=== PATIENT | female | born 1960 | race Caucasian/White ===

== ENCOUNTER 2020-10-11 09:22 | Outpatient (REF) | payer BC, SELFPAY ==
[2020-10-11 09:42] LABS: MANUAL DIFF FLAG NO
[2020-10-11 09:43] LABS: Basophils Percent Auto 0.3 % (0-2); Eosinophils Absolute Auto 0.1 X10*3/uL (0.0-0.4); Eosinophils Percent Auto 1.2 % (0-4); Hematocrit 44.7 % (37-47); Imm Gran Abs Auto 0.02 X10*3/uL (0.00-0.03); Imm Gran Pct Auto 0.3 % (0.0-0.4); Lymphocytes Absolute Auto 1.7 X10*3/uL (1.2-4.9); Lymphocytes Percent Auto 25.6 % (20-40); Mean Corpuscular HGB Conc 33.6 g/dl (31.0-35.0); Mean Corpuscular Hemoglobin 32.4 pg (27.0-33.0); Mean Corpuscular Volume 96.5 fL (80-98); Mean Platelet Volume 10.4 fL (9.4-12.3); Monocytes Absolute Auto 0.6 X10*3/uL (0.1-1.2); Monocytes Percent Auto 8.6 % (2-11); Neutrophils Absolute Auto 4.3 X10*3/uL (2.0-8.3); Platelet Count 258 X10*3/uL (160-400); Red Blood Count 4.63 X10*6/uL (4.20-5.50); Red Cell Distribution Width 12.9 % (11.0-16.0); White Blood Count 6.7 X10*3/uL (4.8-10.8)
[2020-10-11 10:16] LABS: Alanine Aminotransferase 46 U/L (0-31); Albumin Level 4.5 g/dL (3.5-5.0); Alkaline Phosphatase 60 U/L (39-117); Anion Gap 11 (12-20); Aspartate Amino Transferase 30 U/L (5-31); Bilirubin Total 0.6 mg/dL (0.0-1.0); Blood Urea Nitrogen 25 mg/dL (9-16); Carbon Dioxide 31 mmol/L (22-29); Chloride 101 mmol/L (96-108); Cholesterol 199 mg/dL; Estimated Glomerular Filt Rate 50; Glucose Fasting 104 mg/dL (60-99); HDL Cholesterol 49 mg/dL; LDL Cholesterol Calculated 111 mg/dl; Potassium 4.4 mmol/l (3.3-5.1); Sodium 139 mmol/L (135-145); Total Protein 7.1 g/dL (6.5-8.0); Triglycerides 195 mg/dL
[2020-10-11 10:38] LABS: T4 Thyroxine 6.3 ug/dL (4.5-12.0); Thyroid Stimulating Hormone 1.61 uIU/mL (0.32-4.0); Vitamin D 25-OH Total 16.6 ng/mL (>30)
[2020-10-13 09:09] LABS: Folate 14.5 ng/mL (> or = 4.0); Vitamin B12 290 pg/mL (200-900)
== END 2020-10-11 09:23 | disposition home or self-care (01) ==
LOC: HO.LAB 09:22
PROVIDERS: Visit Provider Internal Medicine
DX: E78.00 Pure hypercholesterolemia, unspecified (principal); I10 Essential (primary) hypertension
CPT/HCPCS: 36415; 80053; 80061; 82306; 82607; 82746; 84436; 84443; 85025

== ENCOUNTER 2021-11-23 15:09 | Outpatient (REF) | payer BC, SELFPAY ==
--- NOTE | 2021-11-23 16:27 | MHC.AU.ANR ---
Adult Audiological Evaluation Date of Visit: 11/23/21 Reason for Appointment: Audiological evaluation due to concern for decreased hearing. Ms. Grimes notes difficulties hearing and understanding speech. She feels that she often asks for repetition. Ms. Grimes reports that she began experiencing vertigo ~10 years ago, and feels her hearing started to decline around that time as well. She was seen at [facility] and [facility] in [place] ~10 years ago when her vertigo began. She notes that they weren't able to pinpoint the cause of her vertigo, but noted that her tympanic membranes were thin, likely due to ear infections in childhood. She notes that at her last visit with her PCP Dr. Daniel, he noted a perforation in the right TM. Does patient feel they have a hearing loss?: Yes If Yes, Which Ear?: Both Ears When Was Hearing Difficulty First Noticed?: ~10 years ago Has hearing been tested previously?: Yes Previous Hearing Test Results: Tested at [facility] ~10 year ago, results not available for review. Hearing Handicap Inventory: HHIE SCORE: 30 Based on HHIE score, patient has: Severe perceived hearing handicap Ear History: Family History of Hearing Loss?: Yes: Mother Ear Infections in Childhood: Both Ears History of Ear Wax Buildup: Both Ears Bothersome Tinnitus/Ringing/Noises in Ears: Both Ears Blocked/Full Sensation in Ear(s): Both Ears Medical History: Medical History: Dizziness or Unsteadiness Medical History (Other): Right ACL replaced ~2005, Gall bladder removed ~2009, Kidney stones broken up with sound waves Allergies: Wellbutrin (bupropion), naproxen Medication List: Citalopram 40 mg, dicyclomine 20 mg, lorazepam 0.5 mg, rosuvastatin 10 mg, trazodone 100 mg, triamterene 37.5 mg-hydrochlorothiazide 25 mg Otoscopy: Right Ear: Clear canal, TM appears retracted, no sign of perforation Left Ear: Clear canal, TM appears retracted, no sign of perforation Tympanometry: Tympanometry performed due to: To assess integrity of the middle ear system Right Ear: Hypercompliant Middle Ear System (Type Ad), Double-Peaked Tympanogram Left Ear: Hypercompliant Middle Ear System (Type Ad) Hearing Evaluation: Transducer(s) Used: Insert Earphones, Bone Conduction Method: Conventional Audiometry Stimuli Used: Pure Tones Right Ear: Description of Hearing: Normal hearing from 250-4000 Hz, sloping to a mild hearing loss at 8000 Hz. Left Ear: Description of Hearing: Normal hearing from 250-8000 Hz. Speech Recognition Threshold (SRT): Method Used: Monitored Live Voice Stimuli Used: Spondee Words Right Ear: 15 dBHL Left Ear: 20 dBHL Word Discrimination: Method: Recorded Lists Word Lists Used: NU-6 Right Ear: 100% at 60 dBHL Left Ear: 100% at 60 dBHL Recommendations: Audiological re-evaluation in one year. Amplification is not warranted at this time. Referral to Ear, Nose, and Throat is recommended given reports of vertigo and presence of middle-ear dysfunction. Patient may benefit from a vestibular evaluation. Diagnosis: Primary Diagnosis: H90.41 SNHL Unilateral Right Ear, W/Unrestricted Contralateral Hearing Secondary Diagnosis: H69.93 Unspecified Eustachian Tube Dysfunction, Bilateral Services Performed: Services Performed: Comprehensive Audiological Evaluation (CPT 23812) Tympanometry (CPT 07883) Signature: Provider: Griffin Springer, CCC-A
== END 2021-11-23 15:10 | disposition home or self-care (01) ==
LOC: HO.SH 15:09
PROVIDERS: Visit Provider Internal Medicine
DX: H90.41 Sensorineural hearing loss, unilateral, right ear, with unrestricted hearing on the contralateral side (principal); H69.93 Unspecified Eustachian tube disorder, bilateral
CPT/HCPCS: 92557; 92567

== ENCOUNTER 2022-02-27 09:47 | Outpatient (REF) | payer BC, SELFPAY ==
--- NOTE | ~2022-02-27 | XR_ITS ---
EXAMINATION: XR SHOULDER, LEFT CLINICAL INFORMATION: Left shoulder pain following a fall. COMPARISON: None TECHNIQUE: AP external rotation, Grashey, scapular Y, and axillary views of the left shoulder. FINDINGS: Acromioclavicular marginal osteophytes. Small subacromial spurs. Mild glenohumeral joint space narrowing with tiny marginal osteophytes. No acute fracture or dislocation. No concerning lytic or blastic osseous lesion. XR/XR shoulder LT min 2V IMPRESSION: No acute fracture or dislocation. Moderate acromioclavicular osteoarthritis with small subacromial spurs. Mild glenohumeral osteoarthritis.
[2022-02-27 09:57] LABS: MANUAL DIFF FLAG NO
[2022-02-27 10:32] LABS: Basophils Percent Auto 0.4 % (0-2); Eosinophils Absolute Auto 0.1 X10*3/uL (0.0-0.4); Eosinophils Percent Auto 1.2 % (0-4); Hematocrit 46.4 % (37.0-47.0); Hemoglobin 15.7 g/dl (12.0-16.0); Imm Gran Abs Auto 0.03 X10*3/uL (0.00-0.03); Imm Gran Pct Auto 0.4 % (0.0-0.4); Lymphocytes Absolute Auto 1.8 X10*3/uL (1.2-4.9); Lymphocytes Percent Auto 27.3 % (20-40); Mean Corpuscular HGB Conc 33.8 g/dl (31.0-35.0); Mean Corpuscular Volume 94.5 fL (80.0-98.0); Mean Platelet Volume 10.4 fL (9.4-12.3); Monocytes Absolute Auto 0.5 X10*3/uL (0.1-1.2); Monocytes Percent Auto 7.8 % (2-11); Neutrophils Absolute Auto 4.2 x10*3/uL (2.0-8.3); Neutrophils Percent Auto 62.9 % (45-73); Platelet Count 265 X10*3/uL (160-400); Red Blood Count 4.91 X10*6/uL (4.20-5.50); Red Cell Distribution Width 13.2 % (11.0-16.0); White Blood Count 6.7 X10*3/uL (4.8-10.8)
[2022-02-27 10:51] LABS: Estimated Average Glucose 120 mg/dL; Hemoglobin A1c % 5.8 %
[2022-02-27 11:00] LABS: Alanine Aminotransferase 51 U/L (0-31); Albumin Level 4.7 g/dL (3.5-5.0); Alkaline Phosphatase 65 U/L (39-117); Anion Gap 14 (12-20); Aspartate Amino Transferase 39 U/L (5-31); Bilirubin Total 0.8 mg/dL (0.0-1.0); Blood Urea Nitrogen 21 mg/dL (9-16); Calcium 10.3 mg/dL (8.4-10.2); Carbon Dioxide 29 mmol/L (22-29); Chloride 102 mmol/L (96-108); Cholesterol 238 mg/dL; Estimated Glomerular Filt Rate 58; Glucose Random 107 mg/dL (60-115); HDL Cholesterol 49 mg/dL; LDL Cholesterol Calculated 135 mg/dl; Potassium 3.7 mmol/L (3.3-5.1); Sodium 141 mmol/L (135-145); Total Protein 7.3 g/dL (6.5-8.0); Triglycerides 274 mg/dL
[2022-02-27 11:22] LABS: Free T4 (Free Thyroxine) 0.81 ng/dL (0.71-1.85); Thyroid Stimulating Hormone 2.32 uIU/mL (0.32-4.0); Vitamin D 25-OH Total 33.4 ng/mL (>30)
[2022-02-28 14:45] LABS: Folate > 20.0 ng/mL (> or = 4.0); Vitamin B12 349 pg/mL (200-900)
== END 2022-02-27 09:48 | disposition home or self-care (01) ==
LOC: HO.XRAY 09:47
PROVIDERS: PCP Internal Medicine; Visit Provider Internal Medicine
DX: R73.02 Impaired glucose tolerance (oral) (principal); M25.512 Pain in left shoulder; E78.00 Pure hypercholesterolemia, unspecified
CPT/HCPCS: 36415; 73030; 80053; 80061; 82306; 82607; 82746; 83036; 84439; 84443; 85025

== ENCOUNTER 2022-09-06 16:34 | Outpatient (REF) | payer OTHER, SELFPAY ==
--- NOTE | ~2022-09-06 | XR_ITS ---
EXAMINATION: XR FINGER, RIGHT CLINICAL INFORMATION: Pain in right fingers COMPARISON: Radiographs 02/23/2013 TECHNIQUE: Three views of the right index finger. FINDINGS: There is arguably minimal joint space loss throughout the distal interphalangeal joints which can be seen in the setting of degenerative change. At the distal interphalangeal joint of the index finger, best seen on PA radiograph there is a tiny, 1 mm linear calcific density superimposed overlying the ulnar margin of the joint space which could represent a tiny enthesophyte or periarticular calcification. Uncertain, but doubtful clinical significance. There are no osseous erosions. No fracture identified. The soft tissues are unremarkable. XR/XR finger RT min 2V IMPRESSION: Equivocal finding of a tiny linear calcific density superimposed over the ulnar aspect of the distal interphalangeal joint of the index finger which is essentially only visible on the PA radiograph. This could represent a tiny periarticular calcification. If the patient has had recent trauma, this could represent a tiny bone fragments.
== END 2022-09-06 16:35 | disposition home or self-care (01) ==
LOC: HO.XRAY 16:34
PROVIDERS: PCP Internal Medicine; Visit Provider Internal Medicine
DX: M79.644 Pain in right finger(s) (principal)
CPT/HCPCS: 73140

== ENCOUNTER 2022-10-29 15:55 | Outpatient (REF) | payer OTHER, SELFPAY ==
--- NOTE | ~2022-10-29 | CT_ITS ---
EXAMINATION: CT CHEST SCREENING CLINICAL INFORMATION: Nicotine dependence. Current smoker. COMPARISON: None. TECHNIQUE: Multidetector volumetric CT imaging of the chest is performed without contrast using low dose technique. Additional 2D coronal and sagittal reformatted images and axial 3D maximum intensity projection (MIP) images are generated on the CT workstation. This CT examination was performed using dose optimization techniques as appropriate, variously including the following: *Automated exposure control *Adjustment of mA and/or kV according to patient size (this includes techniques or standardized protocols for targeted exams where dose is matched to indication/reason for exam; i.e. extremities or head) *Use of iterative reconstruction technique DLP: 152 mGy-cm FINDINGS: LUNGS: There is centrilobular and paraseptal emphysematous changes with mild bullous findings right apical lateral segment. Mild atelectatic changes are seen in the bilateral lower lobe anterobasal segments, lingula and right middle lobe medial segment. There is a 2 mm nodule right upper lobe axial image 166/6. No additional pulmonary nodules, mass or consolidation seen. MEDIASTINUM: The thyroid lobes are symmetric and normal. The central trachea and bronchi are widely patent. CORONARY ARTERY CALCIFICATION: None visualized on this study. PLEURA: There is no pleural effusion. No pleural mass or thickening. AXILLA: No lymphadenopathy. UPPER ABDOMEN: Visualized liver, spleen, pancreas and bilateral adrenal glands are unremarkable. Gallbladder has been surgically removed. OSSEOUS STRUCTURES: Unremarkable. CT/CT lung screening IMPRESSION: Centrilobular and paraseptal emphysema with 2 mm nodule right upper lobe. Mild atelectasis changes bilateral lower lobe anterobasal segments, lingula and right middle lobe. ASSESSMENT: Lung-RADS category 2: Benign RECOMMENDATION: Low-dose annual CT chest.
== END 2022-10-29 15:56 | disposition home or self-care (01) ==
LOC: HO.CT 15:55
PROVIDERS: PCP Internal Medicine; Visit Provider Physician Assistant Medical
DX: Z12.2 Encounter for screening for malignant neoplasm of respiratory organs (principal); F17.210 Nicotine dependence, cigarettes, uncomplicated
CPT/HCPCS: 71271; G0296

== ENCOUNTER 2023-05-26 08:22 | Outpatient (REF) | payer OTHER, SELFPAY | END 2023-05-26 08:23 | disposition home or self-care (01) | LOC: HO.LAB 08:22 | PROVIDERS: PCP Internal Medicine; Visit Provider Internal Medicine | DX: E78.00 Pure hypercholesterolemia, unspecified (principal); R73.02 Impaired glucose tolerance (oral); R39.9 Unspecified symptoms and signs involving the genitourinary system; M85.80 Other specified disorders of bone density and structure, unspecified site; E55.9 Vitamin D deficiency, unspecified | CPT/HCPCS: 36415; 80053; 80061; 81001; 82306; 82607; 82746; 83036; 84439; 84443; 85025 ==

== ENCOUNTER 2023-05-29 11:18 | Emergency (ER) | payer OTHER, SELFPAY ==
[2023-05-29 12:16] VITALS: BP 125/80; PULSE 73; RESP 18; TEMP 37; O2SAT 98; BMI 27.5
--- NOTE | 2023-05-29 12:25 | ED.FEMALEGU ---
HPI - Female Genitourinary General Chief complaint: Urogenital-Female Stated complaint: kidney stones Time Seen by Provider: 05/29/23 16:31 Source: patient Mode of arrival: ambulatory Limitations: no limitations History of Present Illness HPI Narrative: Patient complaining of left flank pain for last 3 weeks with history of kidney stone about 10 years ago which she passed off its own pain is constant does get worse on movement no hematuria no urinary symptoms no fever no chills no urinary symptom no history of trauma or injury Related Data Home Medications Medication Instructions Recorded Confirmed triamterene 37.5 1 tab PO DAILY 03/15/23 mg-hydrochlorothiazide 25 mg tablet Previous Rx's Medication Instructions Recorded citalopram 40 mg tablet 40 mg PO DAILY #90 tabs 09/13/22 rosuvastatin 10 mg tablet 10 mg PO DAILY #90 tabs 09/13/22 trazodone 100 mg tablet 100 mg PO BEDTIME #90 tabs 09/13/22 lorazepam 0.5 mg tablet 0.5 mg PO DAILY PRN anxiety 90 02/11/23 days #30 tabs dicyclomine 20 mg tablet 20 mg PO BID 90 days #180 tabs 04/19/23 cyclobenzaprine 10 mg tablet 10 mg PO Q8H #20 tabs 05/29/23 oxycodone-acetaminophen 5 mg-325 1 tab PO Q6H PRN pain #20 tabs 05/29/23 mg tablet (Percocet) Allergies Allergy/AdvReac Type Severity Reaction Status Date / Time bupropion [From Wellbutrin] Allergy Unknown altered Verified 05/29/23 12:20 mental status naproxen Allergy Unknown stomach Verified 05/29/23 12:20 pain,nausea and black stools Review of Systems Review of Systems: Yes all other systems are reviewed and are negative [facility] Past Medical History Medical History Bile salt-induced diarrhea Finger pain, right Generalized anxiety disorder with panic attacks Hearing deficit History of COVID-19 Hypercholesterolemia Impaired glucose tolerance Insomnia Irritable bowel syndrome Left cervical radiculopathy Overweight Personal history of nicotine dependence Renal insufficiency Surgical History History of cholecystectomy History of lithotripsy History of repair of ACL Family History Family History Father Hypothyroid Mother Cervical cancer Maternal Aunt Ovarian cancer Sister Epilepsy Social History Social History Housing: Apartment Alcohol intake: current Alcohol intake frequency: does not drink Patient Tobacco Use Status: Former Tobacco user Tobacco use type: Cigarette Years Smoked: quit 2010 Smoked in Last 30 Days: No e-Cigarette/Vaping Use: Never Used Second Hand Smoke Exposure: No Use of substances other than those prescribed or required for medical reasons: No Advance Directives: Yes Advance Directives Information Provided: Yes Advance Directives on File: No Current occupational status: employed Cognitive needs: No Hearing needs: No Vision needs: No Physical Exam Vital Signs: Vital Signs: Last Vital Signs Temp 98.7 F 05/29/23 16:09 Pulse 73 05/29/23 16:09 Resp 18 05/29/23 16:09 BP 123/64 05/29/23 16:09 Pulse Ox 98 05/29/23 16:09 O2 Del Method Room Air 05/29/23 16:09 BMI result Body Mass Index 27.5 Appearance: Alert. Oriented X3. No acute distress. ENT: Pharynx normal. Oral Mucosa moist Neck: Normal inspection. Neck supple. CVS: Normal heart rate and rhythm. Pulses normal. Respiratory: No respiratory distress. Equal air entry bilateral, no wheezing/rales/rhonchi Abdomen: Soft and nontender. Bowel sounds are present, no mass palpable, no CVA tenderness left paraspinal lumbar tenderness no midline tenderness Skin: Skin warm and dry. Normal skin color. Normal skin turgor. Extremities: No lower extremity edema. No calf tenderness Neuro: Oriented X 3. No motor deficit. Course Course Course Narrative: RME: 63 yold female presents to the ED for left flank pain with pmh of kidney stones. labs and CT scan abdominal Medications Administered Discontinued Medications Generic Name Dose Route Start Last Admin Trade Name Freq PRN Reason Stop Dose Admin Cyclobenzaprine HCl 10 mg 05/29/23 16:58 05/29/23 17:10 Cyclobenzaprine Hcl 10 Mg Tablet PO 05/29/23 16:59 10 mg ONCE ONE Administration Oxycodone HCl 5 mg 05/29/23 16:58 05/29/23 17:10 Oxycodone Hcl Immed Release 5 Mg Tablet PO 05/29/23 16:59 5 mg ONCE ONE Administration Medical Decision Making Medical Decision Making MDM Narrative: Patient with no obstructing kidney stone pain unlikely kidney pain give patient muscle relaxant pain medication Lab Data [facility] Lab Attestation statement: I reviewed the patient's lab results. 05/29/23 12:35 05/29/23 12:35 Labs: Lab Results 05/29/23 05/29/23 05/29/23 Range/Units 12:35 12:35 12:35 WBC 9.0 (4.8-10.8) X10*3/uL RBC 4.85 (4.20-5.50) X10*6/uL Hgb 15.2 (12.0-16.0) g/dl Hct 46.1 (37.0-47.0) % MCV 95.1 (80.0-98.0) fL MCH 31.3 (27.0-33.0) pg MCHC 33.0 (31.0-35.0) g/dl RDW 13.1 (11.0-16.0) % Plt Count 264 (160-400) X10*3/uL MPV 10.1 (9.4-12.3) fL Immature Gran % (Auto) 0.4 (0.0-0.4) % Neut % (Auto) 64.3 (45-73) % Lymph % (Auto) 24.9 (20-40) % [place] % (Auto) 9.0 (2-11) % Eos % (Auto) 1.0 (0-4) % Baso % (Auto) 0.4 (0-2) % Lymph # (Auto) 2.2 (1.2-4.9) X10*3/uL [place] # (Auto) 0.8 (0.1-1.2) X10*3/uL Eos # (Auto) 0.1 (0.0-0.4) X10*3/uL Baso # (Auto) 0.0 (0.0-0.2) X10*3/uL Abs Immat Gran (auto) 0.04 H (0.00-0.03) X10*3/uL Absolute Neuts (auto) 5.8 (2.0-8.3) x10*3/uL Absolute Nucleated RBC 0.000 (0.0-0.012) X10*3/uL Nucleated RBC % (auto) 0.0 (0.0-0.2) /100WBC Sodium 142 (135-145) mmol/L Potassium 3.7 (3.3-5.1) mmol/L Chloride 102 (96-108) mmol/L Carbon Dioxide 30 H (22-29) mmol/L Anion Gap 14 (12-20) BUN 12 (9-16) mg/dL Creatinine 0.90 (0.5-1.4) mg/dL Estim Creat Clear Calc 64.1 Estimated GFR > 60 Random Glucose 98 (60-115) mg/dL Calcium 10.2 (8.4-10.2) mg/dL Urine Color Yellow Urine Appearance Clear Urine pH 6.5 (5.0-9.0) Ur Specific [place] <= 1.005 (1.005-1.025) Urine Protein Negative (Neg-Trace) mg/dL Urine Glucose (UA) Negative (Negative) mg/dL Urine Ketones Negative (Negative) mg/dL Urine Blood Trace H (Negative) Urine Nitrite Negative (Negative) Ur Leukocyte Esterase Negative (Negative) Urine RBC 0-2 (0-2) /HPF Urine WBC 0-5 (0-5) /HPF Ur Squamous Epith Cells 0-2 (0-2) /HPF Urine Bacteria None Seen (None Seen) Hyaline Casts 0-2 (0-2) /LPF Discharge Plan Discharge Clinical Impression: Back pain Patient Disposition: Home, Self-Care Instructions: Back Pain (ED) Additional Instructions: Cause of your back pain is not very clear likely musculoskeletal No obstructive kidney stone were seen Take pain medication and muscle relaxants as prescribed Prescriptions: New cyclobenzaprine 10 mg tablet 10 mg PO Q8H Qty: 20 0RF oxycodone-acetaminophen [Percocet] 5-325 mg tablet 1 tab PO Q6H PRN (Reason: pain) Qty: 20 0RF Rx Instructions: Partial Fill upon patient request. No Action rosuvastatin 10 mg tablet 10 mg PO DAILY Qty: 90 2RF trazodone 100 mg tablet 100 mg PO BEDTIME Qty: 90 1RF citalopram 40 mg tablet 40 mg PO DAILY Qty: 90 2RF lorazepam 0.5 mg tablet 0.5 mg PO DAILY PRN (Reason: anxiety) 90 Days Qty: 30 0RF dicyclomine 20 mg tablet 20 mg PO BID 90 Days Qty: 180 1RF flu vacc [id number] 6mos up(PF) 60 mcg (15 mcg x 4)/0.5 mL syringe 0.5 ml IM ONCE Qty: 0.5 0RF triamterene-hydrochlorothiazid 37.5-25 mg tablet 1 tab PO DAILY Rx Instructions: vertigo Interventions: ED Discharge Assessment Last Done: 05/29/23 17:29 Discharge Date/Time: 05/29/23 17:30
[2023-05-29 16:09] VITALS: BP 123/64; PULSE 73; RESP 18; TEMP 37.1; O2SAT 98
--- NOTE | 2023-05-29 16:17 | PC.NURSE ---
vss. pt awaiting provider in room. c/o left flank pain. no resp distress. denies sob/cp/other sx. no n/v/d. aox4.
== END 2023-05-29 17:30 | disposition home or self-care (01) ==
PROVIDERS: Emergency Provider Internal Medicine; PCP Internal Medicine
DX: M54.50 Low back pain, unspecified (principal); R10.2 Pelvic and perineal pain; Z87.891 Personal history of nicotine dependence; Z79.899 Other long term (current) drug therapy; Z87.442 Personal history of urinary calculi
CPT/HCPCS: 36415; 74176; 80048; 81001; 85025; 99284

== ENCOUNTER 2023-06-02 15:55 | Outpatient (REF) | payer OTHER, SELFPAY ==
--- NOTE | ~2023-06-02 | US_ITS ---
EXAMINATION: US RETROPERITONEAL LIMITED (RENAL ONLY) CLINICAL INFORMATION: Hematuria, unspecified. COMPARISON: CT abdomen and pelvis 05/29/2023. TECHNIQUE: Real-time imaging of the kidneys. FINDINGS: RIGHT KIDNEY: 10.0 x 5.4 x 5.0 cm (SAG x AP x TRV). The kidney is normal in size, contour, and echogenicity. Renal cortical thickness is normal. No hydronephrosis. 0.8 x 0.8 x 0.9 cm simple upper pole and 1.4 x 1.4 x 1.7 cm simple lower pole cyst are seen. No imaging follow-up is recommended. Question of 0.3 x 0.3 x 0.3 cm nonobstructing calculus in the upper pole. Pelvic fullness is noted. LEFT KIDNEY: 11.6 x 5.8 x 4.9 cm (SAG x AP x TRV). The kidney is normal in size, contour, and echogenicity. Renal cortical thickness is normal. No focal parenchymal lesions or hydronephrosis. 0.4 x 0.3 x 0.4 cm nonobstructing calculus is noted. Pelvic fullness is noted. BLADDER: Bilateral ureteral jets are demonstrated. US/US renal BI IMPRESSION: 1. Left renal nonobstructing calculus. 2. Question of 0.3 cm nonobstructing calculus in the upper pole of the right kidney.
== END 2023-06-02 15:56 | disposition home or self-care (01) ==
LOC: HO.US 15:55
PROVIDERS: Visit Provider Internal Medicine
DX: R31.9 Hematuria, unspecified (principal)
CPT/HCPCS: 76775

== ENCOUNTER 2023-09-15 15:28 | Outpatient (AMB) | payer OTHER, SELFPAY ==
[2023-09-15 15:44] VITALS: BP 116/70; PULSE 76; O2SAT 98; BMI 26.8
--- NOTE | 2023-09-15 15:44 | MHC.PC.OV ---
Vital Signs 09/15/23 15:44 Height 5 ft 4 in Weight 156 lb BMI 26.8 BP 116/70 Blood Pressure Location Lt brachial Position Sitting Pulse 76 Pulse Source Pulse Oximeter Pulse Oximetry (%) 98 Oxygen Delivery Method Room Air Intake Visit Reasons: 6 months f/u Allergies bupropion [From Wellbutrin] Allergy (Unknown, Verified 09/15/23 15:45) altered mental status naproxen Allergy (Unknown, Verified 09/15/23 15:45) stomach pain,nausea and black stools Medication List - Last Reconciled 09/15/23 by Darron Daniel MD celecoxib (Celebrex) 200 mg PO DAILY citalopram 40 mg PO DAILY cyclobenzaprine 10 mg PO Q8H dicyclomine 20 mg PO BID 90 days lorazepam 0.5 mg PO DAILY PRN 90 days oxycodone-acetaminophen 5-325 mg (Percocet) 1 tab PO Q6H PRN rosuvastatin 10 mg PO DAILY trazodone 100 mg PO BEDTIME triamterene-hydrochlorothiazid 37.5-25 mg 1 tab PO DAILY Tobacco use date assessed: 03/15/23 Dental Screening Dental Screen Date: 09/15/23 Did you have a dental visit in the last 12 months?: Yes Did you have a dental problem in the last 6 months where you did not have access to dental care?: No Was dental information given to patient?: Patient has dentist HPI 6 months f/u HPI Details 63-year-old female with a history of hypercholesterolemia impaired glucose tolerance generalized anxiety disorder coming in for follow-up. Patient was advised mammogram. Last seen in February 2023 patient had hematuria and an ultrasound of the kidneys done showing a bilateral renal calculus left nonobstructing right 3 mm upper pole of the right kidney patient had bone density done March 2023 showing osteopenia. L shoulder- hx of fall and xray showing OA (L shoulder ) 2021- moderate PFSH Medical History Hematuria Personal history of nicotine dependence History of COVID-19 Hearing deficit Finger pain, right Bile salt-induced diarrhea Generalized anxiety disorder with panic attacks Impaired glucose tolerance Irritable bowel syndrome Renal insufficiency Left cervical radiculopathy Overweight Insomnia Hypercholesterolemia Surgical History History of repair of ACL History of cholecystectomy History of lithotripsy Family History Father Hypothyroid Mother Cervical cancer Maternal Aunt Ovarian cancer Sister Epilepsy Social History Housing: Apartment Alcohol intake: current Alcohol intake frequency: does not drink Patient Tobacco Use Status: Former Tobacco user Tobacco use type: Cigarette Years Smoked: quit 2009 e-Cigarette/Vaping Use: Never Used Second Hand Smoke Exposure: No Current occupational status: employed Cognitive needs: No Hearing needs: No Vision needs: No Questionnaire PHQ-9 Over the last 2 weeks, how often have you been bothered by any of the following problems? 1. Little interest or pleasure in doing things: not at all 2. Feeling down, depressed, or hopeless: not at all 3. Trouble falling or staying asleep, or sleeping too much: not at all 4. Feeling tired or having little energy: not at all 5. Poor appetite or overeating: not at all 6. Feeling bad about yourself - or that you are a failure or have let yourself or your family down: not at all 7. Trouble concentrating on things, such as reading the newspaper or watching television: not at all 8. Moving or speaking so slowly that other people could have noticed. Or the opposite - being so fidgety or restless that you have been moving around a lot more than usual: not at all 9. Thoughts that you would be better off or of hurting yourself in some way: not at all Total score: 0 Depression Screening Interpretation: Negative Depression Screening Done: Yes Source: Developed by Drs. Jackson Jackson, Marcelle Wolf, Andrés Cervantes and colleagues, with an educational josseline from [employer]. Thrive Questionnaire Date Thrive assessed: 03/15/23 AUDIT C Alcohol Use Questionnaire (AUDIT-C) 1. How often do you have a drink containing alcohol?: Monthly or less 2. How many drinks containing alcohol do you have on a typical day when you are drinking?: 1 or 2 3. How often do you have six or more drinks on one occasion?: Never Total Score: 1 ISAIAS-7 AMB Questionnaire ISAIAS-7 Date ISAIAS - 7 assessed: 03/15/23 Source: Developed by Drs. Jackson Jackson, Marcelle Wolf, Andrés Cervantes and colleagues, with an educational josseline from [employer]. Physical exam (Primary Care) Vital Signs: Last Vital Signs Pulse 76 09/15/23 15:44 BP 116/70 09/15/23 15:44 Pulse Ox 98 09/15/23 15:44 Oxygen Delivery Method Room Air 09/15/23 15:44 BMI result Body Mass Index 26.8 Tobacco/Smoking Status: Tobacco use Status Tobacco use date assessed 03/15/23 09/15/23 15:48 Patient Tobacco Use Status Former Tobacco user 09/15/23 15:48 Tobacco use type Cigarette 09/15/23 15:48 e-Cigarette/Vaping Use Never Used 09/15/23 15:48 PHQ-9: PHQ-9 Score PHQ-9: Total score 0 09/15/23 18:40 Depression Screening Interpretation: Negative Thrive Assessment: Date of Thrive Assessment Date Thrive assessed 03/15/23 09/15/23 15:48 Const General: alert; No acute distress Eyes Conjunctivae: conjunctivae normal Resp Auscultation: clear to auscultation bilaterally Cardio Rate: regular rate Rhythm: regular rhythm GI Inspection: Yes normal to inspection Extrem General: Yes normal to inspection and No edema Assessment and Plan Assessment & Plan (1) Renal calculus, bilateral: Comment: May 2023 Left renal nonobstructing calculus. 2. Question of 0.3 cm nonobstructing calculus in the upper pole of the right kidney. Code(s): N20.0 - Calculus of kidney Plan: Increase oral fluids (2) TSH elevation: Code(s): R79.89 - Other specified abnormal findings of blood chemistry Plan: Repeat thyroid test in few months (3) Hypercholesterolemia: Code(s): E78.00 - Pure hypercholesterolemia, unspecified Plan: Avoid fried foods, chicken skin, eggs, butter margarine, pastries and meat. Be it pork or beef they have a lot of cholesterol LDL goal of less than 130 and triglyceride of less than 150 patient on rosuvastatin 10 mg once a day (4) Impaired glucose tolerance: Code(s): R73.02 - Impaired glucose tolerance (oral) Plan: Decrease the amount of carbohydrate intake, pasta, bread, rice and potatoes are all sugar and that is aside from all the sweet stuff, remember that fruits are good but they are Sweet also. (5) Generalized anxiety disorder with panic attacks: Comment: decline counselling 05/2022 Code(s): F41.1 - Generalized anxiety disorder; F41.0 - Panic disorder [episodic paroxysmal anxiety] Plan: Continue with therapy (6) Osteopenia: Comment: March 2023 Code(s): M85.80 - Other specified disorders of bone density and structure, unspecified site Plan: Calcium and vitamin-D and keep active (7) Osteoarthritis, shoulder: Code(s): M19.019 - Primary osteoarthritis, unspecified shoulder (8) Hearing difficulty of right ear: Code(s): H91.91 - Unspecified hearing loss, right ear Orders: Orders PT Evaluation and Treatment Today M19.019 - Primary osteoarthritis, unspecified shoulder Referrals Ear/Nose/Throat Referral H91.91 - Unspecified hearing loss, right ear Medications: New celecoxib (Celebrex) 200 mg PO DAILY 30 caps 0RF M19.019 - Primary osteoarthritis, unspecified shoulder Coding Level of Care Code Est Pt Level 4 (20205) Diagnoses Renal calculus, bilateral N20.0 TSH elevation R79.89 Hypercholesterolemia E78.00 Impaired glucose tolerance R73.02 Generalized anxiety disorder with panic attacks F41.1; F41.0 Osteopenia M85.80 Osteoarthritis, shoulder M19.019 Hearing difficulty of right ear H91.91
== END 2023-09-15 16:33 | disposition home or self-care (01) ==
PROVIDERS: Visit Provider Internal Medicine
DX: N20.0 Calculus of kidney (principal); R79.89 Other specified abnormal findings of blood chemistry; E78.00 Pure hypercholesterolemia, unspecified; R73.02 Impaired glucose tolerance (oral); F41.1 Generalized anxiety disorder; F41.0 Panic disorder [episodic paroxysmal anxiety]; M85.80 Other specified disorders of bone density and structure, unspecified site; M19.019 Primary osteoarthritis, unspecified shoulder; H91.91 Unspecified hearing loss, right ear
CPT/HCPCS: 99214

== ENCOUNTER 2023-12-19 09:15 | Outpatient (REF) | payer OTHER, SELFPAY ==
[2023-12-19 10:35] LABS: TSH reflex Free T4 2.78 uIU/mL (0.32-4.0)
== END 2023-12-19 09:16 | disposition home or self-care (01) ==
LOC: HO.LAB 09:15
PROVIDERS: PCP Internal Medicine; Visit Provider Internal Medicine
DX: R79.89 Other specified abnormal findings of blood chemistry (principal); Z87.891 Personal history of nicotine dependence
CPT/HCPCS: 36415; 84443

== ENCOUNTER 2023-12-19 15:41 | Outpatient (AMB) | payer OTHER, SELFPAY ==
[2023-12-19 15:43] VITALS: BP 110/72; PULSE 74; O2SAT 95; BMI 27.5
--- NOTE | 2023-12-19 15:43 | A.OFFPC_ITS ---
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 Allergies bupropion [From Wellbutrin] Allergy (Unknown, Verified 12/19/23 15:43) altered mental status naproxen Allergy (Unknown, Verified 12/19/23 15:43) stomach pain,nausea and black stools Medication List - Last Reconciled 12/19/23 by Darron Daniel MD celecoxib (Celebrex) 200 mg PO DAILY citalopram 40 mg PO DAILY dicyclomine 20 mg PO BID 90 days lorazepam 0.5 mg PO DAILY PRN 90 days rosuvastatin 10 mg PO DAILY trazodone 100 mg PO BEDTIME triamterene-hydrochlorothiazid 37.5-25 mg 1 tab PO DAILY Tobacco use date assessed: 12/19/23 Dental Screening Dental Screen Date: 12/19/23 HPI L shoulder OA, renal calculi HPI Details 63-year-old overweight female with a his tory of bilateral renal calculus hypercholesterolemia impaired glucose tolerance osteopenia shoulder osteoarthritis coming in for follow-up. Last seen in August 2023. Patient's colonoscopy is up-to-date bone density is up-to-date mammogram is up-to-date. Patient has a hearing problem and seen ent and was rx methyprednisone- (given for vertigo) but not any better [facility] Medical History Hematuria Personal history of nicotine dependence History of COVID-19 Hearing deficit Finger pain, right Bile salt-induced diarrhea Generalized anxiety disorder with panic attacks Impaired glucose tolerance Irritable bowel syndrome Renal insufficiency Left cervical radiculopathy Overweight Insomnia Hypercholesterolemia Surgical History History of repair of ACL History of cholecystectomy History of lithotripsy Family History Father Hypothyroid Mother Cervical cancer Maternal Aunt Ovarian cancer Sister Epilepsy Social History Housing: Apartment Alcohol intake: current Alcohol intake frequency: does not drink Patient Tobacco Use Status: Former Tobacco user Tobacco use type: Cigarette Years Smoked: quit 2009 e-Cigarette/Vaping Use: Never Used Second Hand Smoke Exposure: No Current occupational status: employed Cognitive needs: No Hearing needs: No Vision needs: No Questionnaire Thrive Questionnaire Date Thrive assessed: 03/15/23 AUDIT C Alcohol Use Questionnaire (AUDIT-C) 1. How often do you have a drink containing alcohol?: Monthly or less 2. How many drinks containing alcohol do you have on a typical day when you are drinking?: 1 or 2 3. How often do you have six or more drinks on one occasion?: Never Total Score: 1 ISAIAS-7 AMB Questionnaire ISAIAS-7 Date ISAIAS - 7 assessed: 12/19/23 Source: Developed by Drs. Jackson Jackson, Marcelle Wolf, Andrés Cervantes and colleagues, with an educational josseline from [employer]. Physical exam (Primary Care) Vital Signs: Last Vital Signs Pulse 74 12/19/23 15:43 BP 110/72 12/19/23 15:43 Pulse Ox 95 12/19/23 15:43 Oxygen Delivery Method Room Air 12/19/23 15:43 BMI result Body Mass Index 27.5 Tobacco/Smoking Status: Tobacco use Status Tobacco use date assessed 12/19/23 12/19/23 15:44 Patient Tobacco Use Status Former Tobacco user 12/19/23 15:44 Tobacco use type Cigarette 12/19/23 15:44 e-Cigarette/Vaping Use Never Used 12/19/23 15:44 Thrive Assessment: Date of Thrive Assessment Date Thrive assessed 03/15/23 12/19/23 15:44 Const General: alert; No acute distress Eyes Conjunctivae: conjunctivae normal Resp Auscultation: clear to auscultation bilaterally Cardio Rate: regular rate Rhythm: regular rhythm GI Inspection: Yes normal to inspection Extrem General: Yes normal to inspection and No edema Assessment and Plan Assessment & Plan (1) Osteoarthritis, shoulder: Code(s): M19.019 - Primary osteoarthritis, unspecified shoulder Plan: Keep active (2) Renal calculus, bilateral: Comment: May 2023 Left renal nonobstructing calculus. 2. Question of 0.3 cm nonobstructing calculus in the upper pole of the right kidney. Code(s): N20.0 - Calculus of kidney Plan: Increase oral fluids (3) Personal history of nicotine dependence: Comment: (former smoker - onset 17yo, 1ppd x 33yrs, 30pyh - quit 2009) October [address]22 CT scan Code(s): Z87.891 - Personal history of nicotine dependence Plan: Patient is strongly advised to stop smoking (4) Hypercholesterolemia: Code(s): E78.00 - Pure hypercholesterolemia, unspecified Plan: Avoid fried foods, chicken skin, eggs, butter margarine, pastries and meat. Be it pork or beef they have a lot of cholesterol on rosuvastatin 10 mg once a day (5) Generalized anxiety disorder with panic attacks: Comment: decline counselling 05/2022 Code(s): F41.1 - Generalized anxiety disorder; F41.0 - Panic disorder [episodic paroxysmal anxiety] Plan: Continue with present medication Orders: Orders CT chest wo con - High Res Today Z87.891 - Personal history of nicotine dependence Complete Blood Count Auto Diff 6 Months E78.00 - Pure hypercholesterolemia, unspecified Comprehensive Met. Panel 6 Months E78.00 - Pure hypercholesterolemia, unspecified Free T4 (Free Thyroxine) 6 Months E78.00 - Pure hypercholesterolemia, unspecified Vitamin D 25-OH Total 6 Months E78.00 - Pure hypercholesterolemia, unspecified Hemoglobin A1c 6 Months R73.02 - Impaired glucose tolerance (oral) Thyroid Stimulating Hormone 6 Months E78.00 - Pure hypercholesterolemia, unspecified Lipid Panel 6 Months E78.00 - Pure hypercholesterolemia, unspecified Vitamin B12 and Folate 6 Months E78.00 - Pure hypercholesterolemia, unspecified Medications: Refilled celecoxib (Celebrex) 200 mg PO DAILY 90 caps 1RF M19.019 - Primary osteoarthritis, unspecified shoulder Coding Level of Care Code Est Pt Level 4 (89685) Diagnoses Osteoarthritis, shoulder M19.019 Renal calculus, bilateral N20.0 Personal history of nicotine dependence Z87.891 Hypercholesterolemia E78.00 Generalized anxiety disorder with panic attacks F41.1; F41.0
== END 2023-12-19 16:19 | disposition home or self-care (01) ==
PROVIDERS: PCP Internal Medicine; Visit Provider Internal Medicine
DX: M19.019 Primary osteoarthritis, unspecified shoulder (principal); N20.0 Calculus of kidney; Z87.891 Personal history of nicotine dependence; E78.00 Pure hypercholesterolemia, unspecified; F41.1 Generalized anxiety disorder; F41.0 Panic disorder [episodic paroxysmal anxiety]
CPT/HCPCS: 99214

== ENCOUNTER 2023-12-27 08:00 | Outpatient (RCR) | payer OTHER, SELFPAY ==
[2023-10-10 13:04] VITALS: PULSE 89; O2SAT 97
--- NOTE | 2023-12-27 10:14 | MHC.PT.OD ---
[facility] [place] Office [place] Office [place] Office [address] Debbie Villalpando [address] [phone] F: [phone] F: [phone] F: [phone] F: [phone] Physical Therapy Daily Note Diagnosis: L shoulder pain eval and treat, order found in office note from Dr. Claros 09/15/23 Date of Surgery: Date of Evaluation: 10/10/23 Date of Treatment: 12/27/23 Treatments to Date: Cancellations to Date: No Shows to Date: Authorized Visits: 4 Insurance End Date: Precautions/ Contraindications:history of fall onto L shoulder 07/12 Subjective: Reports having ongoing pain in L shoulder, unable to lift a gallon of milk. Pt having pain ranging from 6-10/10. Pain Score and Location: 5 L shoulder Objective Flowsheet: Tests & Measures Strength abduction 3-/5 L UE, Strength flexion 4/5 L UE, Strength IR 4-/5 L UE, Strength ER 4/5 L UE (+) impingement, (+) pain with abduction. L UE AROM flexion 155, L UE abduction 100 limited by pain, L UE ER C5 sx, L UE IR lateral buttocks. Exercises Review of AAROM program for home, avoidance of pushing into pain, education for HEP program to date, completion of AAROM vs AROM activity, review of scapular retraction with YTB for rows x 2 sets 10R, external rotation and internal rotation with YTB x 2 sets 10R, shoulder extension x 2 sets 10R, review of AAROM flexion overhead with cane x 2 sets 10E within painfree ranges. Sensation intact. Skin intact. Tape applied anterior/lateral/posterior shoulder with I strip while applied in scapular retraction thoracic extension to aide in support. Education re: removal. Previous taping handout issued to patient to removal/goals/indications of use. Modalities Skin intact. Application of TENS setting 1 intensity 4.0 unit applied to L shoulder cross patterned via ChartCube TENS unit with DINORA waveform. Pt educated re: goals, application, use, safety, and removal. Pt verbalized carryover for safety post education/instruction. Pt given information about how to obtain for home use should she elect to do so. Pt encouraged to call the office with any questions should she develop any questions. Assessment: 12/27/23: Pt is an ambidextrous, 63 y/o female, referred to PT from her PCP Dr. Claros back in August 2023, (started PT on 10/10/23 x 4 visits through 12/27/23). Pt has personal history of FOOSH in fall of 2021 with onset of sx shortly after that time. She presents to the office expressing no change in sx, ongoing significant pain impacting her quality of life. Should sx ranging 6-10/10. Pt reports weakness and inability to lift a 1/2 gallon out of the fridge. Concern for supraspinatus tear is noted. She has swelling and bruising present along anterior lateral shoulder L compared to her R. Ongoing sleep disturbance secondary to severe pain. She has failed conservative treatment/AAROM/periscap strengthening with PT. Pt presents with painful arc, limited AROM, and constant pain. Pt would benefit from MRI and ortho consult to rule out RTC pathology. Today we discussed option of her obtaining a home TENS machine as it has been helpful in providing some limited short term relief for her pain during her recent visits to PT. She demonstrated positive education of carryover post education. Pt reports she recently saw Dr. Claros for a follow up who has requested a note from therapist. Pt has been educated in activity modification of AAROM vs AROM and recommendation to perform flexion vs abduction movements. She has recently developed a secondary irritation of her biceps tendon. At this time patient is encouraged to make a follow up with Dr. CLAROS to discuss need for MRI and orthopedic referral. 11/08/23: Pt has attended a few sessions since starting on 10/10/23. Pt reports history of FOOSH L UE in summer. Pt reports waiting a year before seeking treatment. Pt rates pain 7-10/10 today, was trialed with taping, AAROM, and strengthening showcasing some improvement in motion. She continues to be unable to reach behind her back, has pain with resisted IR and abduction. Concern for RTC pathology is present and patient may benefit from a referral and/or MRI of the L shoulder given history of injury and length of symptoms. Pt was issued resisted bands today with good tolerance for trial in the office. She has been advised to use ice prn. 10/21/23: Pt demonstrated positive response to ROCKTAPE application for L shoulder stability. Pain rated 5/10 overall with AAROM. Encouraged low rep, pain-free activity. HEP handouts given. Pt encouraged to call Dr. Claros regarding positive response to celebrex and need for refill prior to running out. Pt is R>L hand dominant female, referred to PT for treatment of L shoulder pain following history of fall onto L shoulder in the [facility], occurred June 2022. Pt reports avoidance of seeking treatment in the hopes sx would improve. Sx did not improve and patient reports pain at rest. Inability to reach, lift, and reach behind her back. Pain rated 6-7/10. Pt was prescribed celebrex with some short term improvements verbalized from her PCP on 09/15/23. Pt exhibits decreased AROM of the L shoulder, pain at rest, and impaired functional mobility. Only brief intake of initial evaluation was able to be completed, patient and therapist elected to pause further due to uncontrollable coughing spells. Pt reports hx of sx of URI for the past 10 days. Therapist encouraged patient to go to urgent care for evaluation. Pt agreeable. Sp02 97% room air, HR 89 bpm. PT Plan: Recommending MRI and orthopedic referral. Short Term Goals: 1. AAROM L shoulder flexion to 150. 2. AAROM L shoulder abduction to 130 sx <2/10. 3. Initiate HEP. 4. Improve strength of scapular stabilizers by one grade. Fpc Goals: 1. I HEP. 2. Reach for a 1/2 gallon of milk with L UE. 3. Strength 5/5 all planes L UE. 4. Reduce pain by 50% L shoulder. Electronically signed by: Yareli Shah, PT, DPT
== END 2024-05-14 07:15 ==
LOC: HO.PTWFD 08:00
PROVIDERS: PCP Internal Medicine; Visit Provider Internal Medicine
DX: M19.012 Primary osteoarthritis, left shoulder (principal)
CPT/HCPCS: 97014; 97110; 97140; 97162

== ENCOUNTER 2024-02-01 15:08 | Outpatient (REF) | payer OTHER, SELFPAY ==
--- NOTE | ~2024-02-01 | CT_ITS ---
EXAMINATION: CT CHEST SCREENING CLINICAL INFORMATION: Nonsmoker for 12 years. Smoked 1 pack per day for 40 pack years. COMPARISON: CT lung screening 07/30/2022. TECHNIQUE: Multidetector volumetric CT imaging of the chest is performed without contrast using low dose technique. Additional 2D coronal and sagittal reformatted images and axial 3D maximum intensity projection (MIP) images are generated on the CT workstation. This CT examination was performed using dose optimization techniques as appropriate, variously including the following: *Automated exposure control *Adjustment of mA and/or kV according to patient size (this includes techniques or standardized protocols for targeted exams where dose is matched to indication/reason for exam; i.e. extremities or head) *Use of iterative reconstruction technique DLP: 48 mGy-cm FINDINGS: LUNGS: Mild emphysematous changes are again seen. Some scarring is present in the lingula and right middle lobe. Previously seen 2 mm nodule in the right upper lobe is unchanged (5174, compare prior 6:166) The lungs are otherwise clear with no evidence of inflammation or worrisome nodules. MEDIASTINUM: The mediastinum is normal. CORONARY ARTERY CALCIFICATION: None visualized on this study. PLEURA: There is no pleural effusion. No pleural mass or thickening. AXILLA: No lymphadenopathy. UPPER ABDOMEN: Liver attenuation is slightly decreased compared with the spleen suggesting hepatic steatosis. OSSEOUS STRUCTURES: Unremarkable. CT/CT lung screening IMPRESSION: No findings present to suggest malignancy. Mild emphysema, unchanged 2 mm nodule and probable hepatic steatosis. ASSESSMENT: Lung-RADS category 2: Benign RECOMMENDATION: Routine annual low-dose CT screening in 12 months.
== END 2024-02-01 15:09 | disposition home or self-care (01) ==
LOC: HO.CT 15:08
PROVIDERS: PCP Internal Medicine; Visit Provider Nurse Practitioner Family
DX: Z12.2 Encounter for screening for malignant neoplasm of respiratory organs (principal); F17.210 Nicotine dependence, cigarettes, uncomplicated
CPT/HCPCS: 71271

== ENCOUNTER 2024-03-07 08:48 | Outpatient (AMB) | payer OTHER, SELFPAY ==
[2024-03-07 08:51] VITALS: BP 124/78; PULSE 64; O2SAT 98; BMI 26.4
--- NOTE | 2024-03-07 08:51 | MHC.PC.OV ---
Vital Signs 03/07/24 08:51 Height 5 ft 4 in Weight 154 lb BMI 26.4 BP 124/78 Blood Pressure Location Lt brachial Position Sitting Pulse 64 Pulse Source Pulse Oximeter Pulse Oximetry (%) 98 Oxygen Delivery Method Room Air Intake Visit Reasons: MRI of Shoulder Request Allergies bupropion [From Wellbutrin] Allergy (Unknown, Verified 03/07/24 08:52) altered mental status naproxen Allergy (Unknown, Verified 03/07/24 08:52) stomach pain,nausea and black stools Medication List - Last Reconciled 03/07/24 by Darron Daniel MD celecoxib (Celebrex) 200 mg PO DAILY citalopram 40 mg PO DAILY dicyclomine 20 mg PO BID 90 days lorazepam 0.5 mg PO DAILY PRN 90 days rosuvastatin 10 mg PO DAILY trazodone 100 mg PO BEDTIME triamterene-hydrochlorothiazid 37.5-25 mg 1 tab PO DAILY Tobacco use date assessed: 03/07/24 Dental Screening Dental Screen Date: 03/07/24 Did you have a dental visit in the last 12 months?: Yes Did you have a dental problem in the last 6 months where you did not have access to dental care?: No Was dental information given to patient?: Patient has dentist HPI MRI of Shoulder Request HPI Details 64-year-old overweight female smoker with a history of nephrolithiasis hypercholesterolemia generalized anxiety disorder last seen having shoulder pain. Review of the notes patient has colonoscopy is up-to-date July 2021 bone density mammogram all up-to-date. Patient did have CT scan of the chest in January 2024 due to the smoking and showing 2 mm nodule right upper lobe, hepatic steatosis and emphysema.. For the left shoulder patient underwent physical therapy. patient conrtinues to complain of L shoulder weakness and pain prompting consult. Patient also has mentioned that the lorazepam she is taking is not helping anymore and discussed lengthily about the problem of this benzodiazepine as they are making patient tolerant of the medication. Advised not to increase the dose but to get counseling and therapy and she has reached out to her counselor and will be getting that is schedule. As for blood work reminded we have request for blood work there in the lab. [facility] Medical History (Updated 03/07/24 @ 09:07 by Darron Daniel MD) Shoulder pain, left Vertigo Dermatitis of face Finger pain, right TSH elevation Hearing difficulty of right ear Hematuria Personal history of nicotine dependence History of COVID-19 Hearing deficit Bile salt-induced diarrhea Generalized anxiety disorder with panic attacks Impaired glucose tolerance Irritable bowel syndrome Renal insufficiency Left cervical radiculopathy Overweight Insomnia Hypercholesterolemia Surgical History History of repair of ACL History of cholecystectomy History of lithotripsy Family History Father Hypothyroid Mother Cervical cancer Maternal Aunt Ovarian cancer Sister Epilepsy Social History Housing: Apartment Alcohol intake: current Alcohol intake frequency: does not drink Patient Tobacco Use Status: Former Tobacco user Tobacco use type: Cigarette Years Smoked: quit 2009 e-Cigarette/Vaping Use: Never Used Second Hand Smoke Exposure: No Current occupational status: employed Cognitive needs: No Hearing needs: No Vision needs: Yes Questionnaire PHQ-9 Over the last 2 weeks, how often have you been bothered by any of the following problems? 1. Little interest or pleasure in doing things: not at all 2. Feeling down, depressed, or hopeless: not at all 3. Trouble falling or staying asleep, or sleeping too much: not at all 4. Feeling tired or having little energy: not at all 5. Poor appetite or overeating: not at all 6. Feeling bad about yourself - or that you are a failure or have let yourself or your family down: not at all 7. Trouble concentrating on things, such as reading the newspaper or watching television: not at all 8. Moving or speaking so slowly that other people could have noticed. Or the opposite - being so fidgety or restless that you have been moving around a lot more than usual: not at all 9. Thoughts that you would be better off or of hurting yourself in some way: not at all Total score: 0 Depression Screening Interpretation: Negative Depression Screening Done: Yes Source: Developed by Drs. Jackson Jackson, Marcelle Wolf, Andrés Cervantes and colleagues, with an educational josseline from [employer]. Thrive Questionnaire Date Thrive assessed: 03/07/24 I am a: Patient What is your living situation today?: I have a steady place to live Within the past 12 months, did the food you bought not last and you didn't have the money to get more?: Never true Within the past 12 months, did you worry whether your food would run out before you got money to buy more?: Never true Do you have trouble paying for medicines?: No Do you have trouble getting transportation to medical appointments?: No Do you have trouble paying your heating and electricity bill?: No Do you have trouble taking care of your child, family member or friend?: No Do you have trouble with day-to-day activities such as bathing, preparing meals, shopping, managing finances, etc.?: No Are you currently unemployed and looking for a job?: No Are you interested in more education?: No Currently or been in a relationship where the following occur: no concerns reported THRIVE Score: 0 AUDIT C Alcohol Use Questionnaire (AUDIT-C) 1. How often do you have a drink containing alcohol?: Monthly or less 2. How many drinks containing alcohol do you have on a typical day when you are drinking?: 1 or 2 3. How often do you have six or more drinks on one occasion?: Never Total Score: 1 ISAIAS-7 AMB Questionnaire ISAIAS-7 Date ISAIAS - 7 assessed: 03/07/24 Feeling nervous, anxious, or on edge: 1 = Several days Not being able to stop or control worryin = Several days Worrying too much about different things: 1 = Several days Trouble relaxin = Several days Being so restless that it is hard to sit still: 1 = Several days Becoming easily annoyed or irritable: 1 = Several days Feeling afraid as if something awful might happen: 1 = Several days Total ISAIAS-7 score (0-4 normal; 5-9 mild; 10-14 moderate; 15-21 severe): 7 Source: Developed by Drs. Jackson Jackson, Marcelle Wolf, Andrés Cervantes and colleagues, with an educational josseline from [employer]. Physical exam (Primary Care) Vital Signs: Last Vital Signs Pulse 64 03/07/24 08:51 BP 124/78 03/07/24 08:51 Pulse Ox 98 03/07/24 08:51 Oxygen Delivery Method Room Air 03/07/24 08:51 BMI result Body Mass Index 26.4 Tobacco/Smoking Status: Tobacco use Status Tobacco use date assessed 03/07/24 03/07/24 08:56 Patient Tobacco Use Status Former Tobacco user 03/07/24 08:56 Tobacco use type Cigarette 03/07/24 08:56 e-Cigarette/Vaping Use Never Used 03/07/24 08:56 PHQ-9: PHQ-9 Score PHQ-9: Total score 0 03/07/24 08:56 Depression Screening Interpretation: Negative Thrive Assessment: Date of Thrive Assessment Date Thrive assessed 03/07/24 03/07/24 08:56 Currently or been in a relationship where the following occur: no concerns reported Const General: alert; No acute distress Eyes Conjunctivae: conjunctivae normal Resp Auscultation: clear to auscultation bilaterally Cardio Rate: regular rate Rhythm: regular rhythm GI Inspection: Yes normal to inspection Extrem General: Yes normal to inspection and No edema Assessment and Plan Assessment & Plan (1) Shoulder pain, left: Code(s): M25.512 - Pain in left shoulder Plan: Patient has gone for physical therapy with no relief. MRI and orthopedic referral requested. (2) Hypertension: Code(s): I10 - Essential (primary) hypertension Qualifiers: Hypertension type: essential hypertension Qualified Code(s): I10 - Essential (primary) hypertension Plan: Continue with blood pressure medication. Decrease salt intake and exercise on triamterene hydrochlorothiazide last blood work was in May 2023 (3) Hypercholesterolemia: Code(s): E78.00 - Pure hypercholesterolemia, unspecified Plan: Avoid fried foods, chicken skin, eggs, butter margarine, pastries and meat. Be it pork or beef they have a lot of cholesterol takes rosuvastatin 10 mg last blood work was in May 2023 (4) Impaired glucose tolerance: Code(s): R73.02 - Impaired glucose tolerance (oral) Plan: Decrease the amount of carbohydrate intake, pasta, bread, rice and potatoes are all sugar and that is aside from all the sweet stuff, remember that fruits are good but they are Sweet also. (5) Generalized anxiety disorder with panic attacks: Comment: decline counselling 05/2022 Code(s): F41.1 - Generalized anxiety disorder; F41.0 - Panic disorder [episodic paroxysmal anxiety] Plan: Continue with present management. Patient has reached out to a counselor. Orders: Orders MR shoulder LT wo con Today M25.512 - Pain in left shoulder Referrals Orthopedics Referral M25.512 - Pain in left shoulder Coding Level of Care Code Est Pt Level 4 (89818) Diagnoses Shoulder pain, left M25.512 Essential hypertension I10 Hypertension type: essential hypertension Hypercholesterolemia E78.00 Impaired glucose tolerance R73.02 Generalized anxiety disorder with panic attacks F41.1; F41.0
== END 2024-03-07 09:17 | disposition home or self-care (01) ==
PROVIDERS: PCP Internal Medicine; Visit Provider Internal Medicine
DX: M25.512 Pain in left shoulder (principal); I10 Essential (primary) hypertension; E78.00 Pure hypercholesterolemia, unspecified; R73.02 Impaired glucose tolerance (oral); F41.1 Generalized anxiety disorder; F41.0 Panic disorder [episodic paroxysmal anxiety]
CPT/HCPCS: 99214

== ENCOUNTER 2024-03-27 18:00 | Outpatient (REF) | payer OTHER, SELFPAY ==
--- NOTE | ~2024-03-27 | MR_ITS ---
EXAMINATION: MR SHOULDER WITHOUT CONTRAST, LEFT CLINICAL INFORMATION: Shoulder pain COMPARISON: None available. TECHNIQUE: MRI of the shoulder without contrast was performed on a high-field scanner. Technologist reports limited images due to MRI scanner problems. Motion artifact on the obtained sequences. Study FINDINGS: Limited incomplete study. Structures not reliably evaluated. Limited evaluation as follows: ROTATOR CUFF: Not reliably evaluated. Apparent thinning of the distal anterior fibers of the supraspinatus tendon, raising concern for tearing. The tendons otherwise not reliably evaluated. No muscle atrophy or fatty infiltration. BICEPS: Not reliably evaluated CORACOACROMIAL ARCH: The undersurface of the acromion is curved with no subacromial spur. Mild acromioclavicular arthritis LABRUM/CAPSULE: Not reliably evaluated GLENOHUMERAL JOINT/MARROW: Limited incomplete evaluation MR/MR shoulder LT wo con IMPRESSION: Extremely limited incomplete study.. Structures not reliably evaluated. Suspected supraspinatus tear. Recommend repeat MRI.
== END 2024-03-27 18:01 | disposition home or self-care (01) ==
LOC: HO.MRI 18:00
PROVIDERS: PCP Internal Medicine; Visit Provider Internal Medicine
DX: M25.512 Pain in left shoulder (principal)
CPT/HCPCS: 73221

== ENCOUNTER 2024-07-06 11:02 | Outpatient (AMB) | payer OTHER, SELFPAY ==
[2024-07-06 11:06] VITALS: BP 90/68; PULSE 68; O2SAT 97; BMI 23.0
--- NOTE | 2024-07-06 11:06 | A.OFFPC_ITS ---
Vital Signs 07/06/24 11:06 Height 5 ft 4 in Weight 134 lb 0.8 oz BMI 23.0 BP 90/68 Blood Pressure Location Rt brachial Position Sitting Pulse 68 Pulse Source Pulse Oximeter Pulse Oximetry (%) 97 Oxygen Delivery Method Room Air Intake Visit Reasons: Annual Exam Intake Note: Patient is here today for a physical. Learning Strategist Required: No Allergies bupropion [From Wellbutrin] Allergy (Unknown, Verified 07/06/24 11:26) altered mental status naproxen Allergy (Unknown, Verified 07/06/24 11:26) stomach pain,nausea and black stools Tobacco use date assessed: 03/07/24 Dental Screening Dental Screen Date: 07/06/24 Did you have a dental visit in the last 12 months?: Yes Did you have a dental problem in the last 6 months where you did not have access to dental care?: No Was dental information given to patient?: Patient has dentist HPI Annual Exam HPI Details 64-year-old fema le with hypertension hy percholesterolemia impaired glucose tolerance generalized anxiety disorder last seen in February coming in for an physical exam. Colonoscopy up-to-date 08/10/2021, bone density is up-to-date 04/09/2023, mammogram is due. Review of the note had an MRI of the shoulder left suspected supraspinatus tear and advised repeat MRI. had L surgery under Dr. Colorado on waking up - became very anxious. and has not been eating. going to PT right now. PAtient is bery anxious and will hold off PE. Patient was in a panic mode and was teary and crying in the office discussed that after the surgery patient became frightful. States that could not move the lower extremities. She is having physical therapy [facility] Medical History (Updated 07/06/24 @ 11:59 by Darron Daniel MD) Shoulder pain, left Vertigo Dermatitis of face Finger pain, right TSH elevation Hearing difficulty of right ear Hematuria Personal history of nicotine dependence History of COVID-19 Hearing deficit Bile salt-induced diarrhea Generalized anxiety disorder with panic attacks Impaired glucose tolerance Irritable bowel syndrome Renal insufficiency Left cervical radiculopathy Overweight Insomnia Hypercholesterolemia Surgical History History of repair of ACL History of cholecystectomy History of lithotripsy Family History Father Hypothyroid Mother Cervical cancer Maternal Aunt Ovarian cancer Sister Epilepsy Social History Housing: Apartment Alcohol intake: current Alcohol intake frequency: does not drink Patient Tobacco Use Status: Former Tobacco user Tobacco use type: Cigarette Years Smoked: quit 2009 e-Cigarette/Vaping Use: Never Used Second Hand Smoke Exposure: No Current occupational status: employed Cognitive needs: No Hearing needs: No Vision needs: Yes Questionnaire PHQ-9 Over the last 2 weeks, how often have you been bothered by any of the following problems? 1. Little interest or pleasure in doing things: several days (pt states due to shoulder surgery ) 2. Feeling down, depressed, or hopeless: several days 3. Trouble falling or staying asleep, or sleeping too much: not at all 4. Feeling tired or having little energy: several days 5. Poor appetite or overeating: several days 6. Feeling bad about yourself - or that you are a failure or have let yourself or your family down: not at all 7. Trouble concentrating on things, such as reading the newspaper or watching television: several days 8. Moving or speaking so slowly that other people could have noticed. Or the opposite - being so fidgety or restless that you have been moving around a lot more than usual: not at all 9. Thoughts that you would be better off or of hurting yourself in some way: not at all Total score: 5 Depression Screening Interpretation: Negative Depression Screening Done: Yes 26985 - PHQ-9 Billing: Yes Source: Developed by Drs. Jackson Jackson, Marcelle Wolf, Andrés Cervantes and colleagues, with an educational josseline from [employer]. Thrive Questionnaire Date Thrive assessed: 03/07/24 I am a: Patient What is your living situation today?: I have a steady place to live Within the past 12 months, did the food you bought not last and you didn't have the money to get more?: Never true Within the past 12 months, did you worry whether your food would run out before you got money to buy more?: Never true THRIVE Score: 0 AUDIT C Alcohol Use Questionnaire (AUDIT-C) 1. How often do you have a drink containing alcohol?: Monthly or less 2. How many drinks containing alcohol do you have on a typical day when you are drinking?: 1 or 2 3. How often do you have six or more drinks on one occasion?: Never Total Score: 1 ISAIAS-7 AMB Questionnaire ISAIAS-7 Date ISAIAS - 7 assessed: 03/07/24 Feeling nervous, anxious, or on edge: 1 = Several days Not being able to stop or control worryin = Several days Worrying too much about different things: 1 = Several days Trouble relaxin = Several days Being so restless that it is hard to sit still: 1 = Several days Becoming easily annoyed or irritable: 1 = Several days Feeling afraid as if something awful might happen: 1 = Several days Total ISAIAS-7 score (0-4 normal; 5-9 mild; 10-14 moderate; 15-21 severe): 7 Source: Developed by Drs. Jackson Jackson, Marcelle Wolf, Andrés Cervantes and colleagues, with an educational josseline from [employer]. Review of Systems Const Denies poor appetite and Denies weakness Eyes Denies no additional complaints ENT Reports Normal hearing present, Denies dizziness, Denies nasal congestion, Denies tinnitus and Denies sore throat Card Denies chest pain, Denies syncope, Denies rapid heart rate and Denies dyspnea Resp Denies cough and Denies dyspnea GI Denies change in stool character, Reports constipation, Denies diarrhea, Denies nausea and Denies vomiting Denies urinary frequency, Denies difficulty voiding and Denies dysuria Neuro Reports Normal hearing present, Denies confusion, Denies dizziness, Denies syncope and Denies weakness Psych Denies confusion Physical exam (Primary Care) Vital Signs: Last Vital Signs Pulse 68 07/06/24 11:06 BP 90/68 07/06/24 11:06 Pulse Ox 97 07/06/24 11:06 Oxygen Delivery Method Room Air 07/06/24 11:06 BMI result Body Mass Index 23.0 Tobacco/Smoking Status: Tobacco use Status Tobacco use date assessed 03/07/24 07/06/24 11:07 Patient Tobacco Use Status Former Tobacco user 07/06/24 11:07 Tobacco use type Cigarette 07/06/24 11:07 e-Cigarette/Vaping Use Never Used 07/06/24 11:07 PHQ-9: PHQ-9 Score PHQ-9: Total score 5 07/06/24 11:32 Depression Screening Interpretation: Negative Thrive Assessment: Date of Thrive Assessment Date Thrive assessed 03/07/24 07/06/24 11:07 Const General: No confusion Orientation/consciousness: No confusion HENMT Head: Yes normocephalic Ears: external ears normal and TM's normal bilaterally Face and sinus: Yes normal facial exam Mouth: moist mucous membranes Throat: Yes tonsils normal Eyes Conjunctivae: conjunctivae normal Pupils: Equal, round and reactive pupils present and Pupil accommodation reflex normal Direct Ophthalmoscopy: normal light reflex Neck Neck: No lymphadenopathy Thyroid: Thyroid normal Chest Chest palpation & inspection: normal inspection of the chest Resp Effort & Inspection: normal respiratory effort and no audible wheezes Auscultation: clear to auscultation bilaterally, no crackles, no wheezes and lung sounds not diminished Cardio Rate: regular rate Rhythm: regular rhythm Peripheral pulses: radial pulses present and dorsalis pedis present GI Palpation (GI): no masses Auscultation: normal bowel sounds and normoactive bowel sounds Rectal Exam - Female: deferred Skin General skin exam: no rashes or lesions noted Rashes: no rashes Neuro General: No confusion Cranial nerves: Yes Equal, round and reactive pupils present and Yes Normal hearing present Cognition (Neuro): normal cognition Gait exam (Neuro): Normal gait present Motor exam (neuro): 5/5 motor strength present throughout Deep tendon reflexes (DTR's): Right brachioradialis reflex intensity grade: 2+, Left brachioradialis reflex intensity grade: 2+, Right patellar reflex intensity grade: 2+ and Left patellar reflex intensity grade: 2+ Extrem General: No edema Assessment and Plan Assessment & Plan (1) Shoulder pain, left: Comment: DR. Colorado June 05, 2024 Code(s): M25.512 - Pain in left shoulder Plan: Patient has been referred to orthopedics MRI showing question of tear. S?P Surgery - having Physical therapy presently (2) Hypercholesterolemia: Code(s): E78.00 - Pure hypercholesterolemia, unspecified Plan: Avoid fried foods, chicken skin, eggs, butter margarine, pastries and meat. Be it pork or beef they have a lot of cholesterol LDL goal of less than 130 and triglyceride of less than 150 on rosuvastatin 10 mg once a day (3) Impaired glucose tolerance: Code(s): R73.02 - Impaired glucose tolerance (oral) Plan: Decrease the amount of carbohydrate intake, pasta, bread, rice and potatoes are all sugar and that is aside from all the sweet stuff, remember that fruits are good but they are Sweet also. (4) Generalized anxiety disorder with panic attacks: Comment: decline counselling 05/2022 Code(s): F41.1 - Generalized anxiety disorder; F41.0 - Panic disorder [episodic paroxysmal anxiety] Plan: Patient was in a panic mode in the office and has been taking lorazepam 3 tablets at 1 time. Discussed with the patient that we can adjust the medication until we can get formal counseling. Referral done Continue with present therapy with lorazepam as needed and citalopram Orders: Referrals Psychiatry Outpatient Consultation Service F41.0 - Panic disorder [episodic paroxysmal anxiety], F41.1 - Generalized anxiety disorder Medications: Changed From lorazepam 0.5 mg PO DAILY 90 days PRN 30 tabs 0RF anxiety F41.0 - Panic disorder [episodic paroxysmal anxiety], F41.1 - Generalized anxiety disorder To lorazepam 1 mg PO DAILY 90 days PRN 30 tabs 0RF anxiety F41.0 - Panic disorder [episodic paroxysmal anxiety], F41.1 - Generalized anxiety disorder Coding Level of Care Code Est Pt Level 4 (18442) Diagnoses Shoulder pain, left M25.512 Hypercholesterolemia E78.00 Impaired glucose tolerance R73.02 Generalized anxiety disorder with panic attacks F41.1; F41.0
== END 2024-07-06 12:08 | disposition home or self-care (01) ==
PROVIDERS: PCP Internal Medicine; Visit Provider Internal Medicine
DX: M25.512 Pain in left shoulder (principal); E78.00 Pure hypercholesterolemia, unspecified; R73.02 Impaired glucose tolerance (oral); F41.1 Generalized anxiety disorder; F41.0 Panic disorder [episodic paroxysmal anxiety]
CPT/HCPCS: 99214

== ENCOUNTER 2024-07-16 15:55 | Outpatient (AMB) | payer OTHER, SELFPAY ==
--- NOTE | 2024-07-16 16:36 | A.OFFPSYCH_ITS ---
Intake Intake Visit Reasons: Consult Allergies bupropion [From Wellbutrin] Allergy (Unknown, Verified 07/06/24 11:26) altered mental status naproxen Allergy (Unknown, Verified 07/06/24 11:26) stomach pain,nausea and black stools HPI- Psychiatric Chief Complaint: Consult HPI Narrative: 64 yo woman referred by PCP for evaluation of severe anxiety. Pt had rotator cuff surgery on 06/05/24 and since then has been overwhelmed with fear, anxiety and teafulness. She recalls while in the surgical suite and being put undeer anesthesia her ;ast thoughts were I dont want to do this. and then she woke from surgery in tears; she since has had a terrible fear of falling, she has times when she feels she can't move and can't get her legs to move. she is bursting into tears daily. She reports she always had depression and anxiety but its never been this bad. She retired from working at the [employer] in January 2024 and had the surgery in May 2024. Past Psychiatric History: she reports hx of depression and anxiety since high school ; one suicide attempt age 18 . no IPLOC Has been in therapy outpatient; denies trauma Subjective Subjective Subjective Medication Compliance: Yes Side effects from medications: No Review of Systems Medical Review of Systems: unchanged Mental Status Exam Mental Status Exam Patient Appearance: Appropriate Patient Orientation: Person, Place, Time and Situation Level of Consciousness: Awake, Appropriate and Restless Patient Behavior: Timid, Anxious, Crying and Poor Eye Contact Mood Description: Anxious and Sad Affect Description: Anxious and Sad Patient Cognition Impaired: No Ability to Follow Directions: Fair Speech Pattern: Clear and Delayed Memory Description: Intact Hallucinations: None Delusions: Not Present Thought Process: Distracted and Slowed Thinking Thought Content: positive for Loose Associations Judgement: Fair Assessment and Plan Assessment & Plan (1) Generalized anxiety disorder with panic attacks: Status: Acute Code(s): F41.1 - Generalized anxiety disorder; F41.0 - Panic disorder [episodic paroxysmal anxiety] (2) Major depressive disorder, recurrent, moderate: Status: Acute Code(s): F33.1 - Major depressive disorder, recurrent, moderate Plan rule out PTSD plan: stop celexa 40mg daily start prozac 40mg daily utilize ativan prn as needed return in 2-3 weeks consider adding abilify 2mg if needed Medications: New fluoxetine (Prozac) 40 mg PO DAILY 30 caps 1RF Discontinued citalopram Discontinued Reason: Doctor's Order 40 mg PO DAILY 90 tabs 2RF Orders: Orders ECG 12 lead EKG 07/16/24 Z79.899 - 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 Self Management counseling: Maintenance-social rhythm, Mod caffeine/ETOH intake, Sleep hygiene, Cognitive restructuring and General coping skills Medication management counseling: Effectiveness, Side effects, Dosing range, Duration, Drug interaction and Adherence Diagnosis and Prognosis Counseling: Accuracy of diagnosis, Prognosis over time, Impact of diagnosis on life functions, Impact of family relationship, Problematic behaviors secondary to diagnosis and Adequacy of current interventions Details: I spent 65 minutes reviewing the record, seeing the patient and documenting in the medical record. Counseling provided to the patient/caregiver as outlined below. Addressed patient/caregiver concerns regarding current medication regime including effective adherence. Addressed patient/caregiver concerns regarding diagnosis and prognosis including accuracy of diagnosis, prognosis over time, impact of diagnosis. Addressed patient/caregiver concerns regarding impact of recent stressors. [facility] Medical History (Updated 07/16/24 @ 17:12 by Flor Ruelas APRN) Shoulder pain, left Vertigo Dermatitis of face Finger pain, right TSH elevation Hearing difficulty of right ear Hematuria Personal history of nicotine dependence History of COVID-19 Hearing deficit Bile salt-induced diarrhea Generalized anxiety disorder with panic attacks Impaired glucose tolerance Irritable bowel syndrome Renal insufficiency Left cervical radiculopathy Overweight Insomnia Hypercholesterolemia Surgical History History of repair of ACL History of cholecystectomy History of lithotripsy Family History Father Hypothyroid Mother Cervical cancer Maternal Aunt Ovarian cancer Sister Epilepsy Social History Housing: Apartment Alcohol intake: current Alcohol intake frequency: does not drink Patient Tobacco Use Status: Former Tobacco user Tobacco use type: Cigarette Years Smoked: quit 2009 e-Cigarette/Vaping Use: Never Used Second Hand Smoke Exposure: No Current occupational status: employed Cognitive needs: No Hearing needs: No Vision needs: Yes Social History: lives with [facility]; 3 adult children 2 sons [address]; daughter lives in [facility]. Substance History: none Trauma History: denies Coding Level of Care Code Psych Diag Eval w/Med (83904) Diagnoses Generalized anxiety disorder with panic attacks F41.1; F41.0 Major depressive disorder, recurrent, moderate F33.1
== END 2024-07-16 17:03 | disposition home or self-care (01) ==
LOC: HO.HOP 15:55
PROVIDERS: PCP Internal Medicine; Visit Provider Clinical Nurse Specialist Psychiatric/Mental Health
DX: F41.1 Generalized anxiety disorder (principal); F41.0 Panic disorder [episodic paroxysmal anxiety]; F33.1 Major depressive disorder, recurrent, moderate
CPT/HCPCS: 90792

== ENCOUNTER → 2024-07-16 15:55 | Outpatient (BNVA) | payer OTHER, SELFPAY | PROVIDERS: PCP Internal Medicine; Visit Provider Clinical Nurse Specialist Psychiatric/Mental Health | DX: F41.1 Generalized anxiety disorder (principal); F41.0 Panic disorder [episodic paroxysmal anxiety]; F33.1 Major depressive disorder, recurrent, moderate | CPT/HCPCS: 90792 ==

== ENCOUNTER → 2024-07-30 13:07 | Outpatient (REF) | payer OTHER, SELFPAY ==
--- NOTE | 2024-07-30 13:12 | ECG_ITS ---
Test Reason : Long-Term RX Therapy Blood Pressure : / mmHG Vent. Rate : 077 BPM Atrial Rate : 077 BPM P-R Int : 132 ms QRS Dur : 082 ms QT Int : 400 ms P-R-T Axes : 029 058 071 degrees QTc Int : 452 ms Normal sinus rhythm Normal ECG No previous ECGs available Referred By: Flor Ruelas Electronically Signed By:CHIN ANNA
== END ==
LOC: HO.CARD 13:07
PROVIDERS: PCP Internal Medicine; Visit Provider Clinical Nurse Specialist Psychiatric/Mental Health
DX: Z79.899 Other long term (current) drug therapy (principal)
CPT/HCPCS: 93005

== ENCOUNTER 2024-08-02 16:00 | Outpatient (AMB) | payer OTHER, SELFPAY ==
--- NOTE | 2024-08-02 16:15 | A.OFFPSYCH_ITS ---
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 Required: No Allergies bupropion [From Wellbutrin] Allergy (Unknown, Verified 07/06/24 11:26) altered mental status naproxen Allergy (Unknown, Verified 07/06/24 11:26) stomach pain,nausea and black stools Medication List - Last Reconciled 08/02/24 by Flor Ruelas APRN celecoxib (Celebrex) 200 mg PO DAILY dicyclomine 20 mg PO BID 90 days fluoxetine (Prozac) 40 mg PO DAILY lorazepam 1 mg PO DAILY PRN 90 days rosuvastatin 10 mg PO DAILY trazodone 100 mg PO BEDTIME triamterene-hydrochlorothiazid 37.5-25 mg 1 tab PO DAILY HPI- Psychiatric Chief Complaint: follow up HPI Narrative: mood much improved; anxiety reduced; mood stable; no tearfulness; sleep improved on trazodone; no side effects from proazc. much less overwhelmed; making good progress in pT for shoulder and this is helping her mood; Past Psychiatric History: she reports hx of depression and anxiety since high school ; one suicide attempt age 18 . no IPLOC Has been in therapy outpatient; denies trauma Subjective Subjective Subjective Medication Compliance: Yes Side effects from medications: No Review of Systems Medical Review of Systems: unchanged Mental Status Exam Mental Status Exam Patient Appearance: Well Grooomed and Appropriate Patient Orientation: Person, Place, Time and Situation Level of Consciousness: Awake, Appropriate and Alert Patient Behavior: Appropriate and Good Eye Contact Mood Description: Calm and Appropriate Affect Description: Calm and Appropriate Patient Cognition Impaired: No Ability to Follow Directions: Good Speech Pattern: Clear and Appropriate Memory Description: Intact Hallucinations: None Delusions: Not Present Thought Process: Intact and Goal Oriented Thought Content: positive for Intact and positive for Goal Oriented Judgement: Good Assessment and Plan Assessment & Plan (1) Major depressive disorder, recurrent, moderate: Status: Acute Code(s): F33.1 - Major depressive disorder, recurrent, moderate (2) Generalized anxiety disorder with panic attacks: Status: Acute Code(s): F41.1 - Generalized anxiety disorder; F41.0 - Panic disorder [episodic paroxysmal anxiety] Plan responding well to prozac; mood improved, no panic attacks; anxiety reduced. no side effects she will return to care of PCP and can be re-referred if any changes in future discussed moving slowly from sitting to standing position or lying down to standing to decrease dizziness and risk of fall Medications: Refilled fluoxetine (Prozac) 40 mg PO DAILY 90 caps 0RF trazodone 100 mg PO BEDTIME 90 tabs 1RF F51.01 - Primary insomnia Counseling and coordination of Care Pt. Self Management counseling: Maintenance-social rhythm, Mod caffeine/ETOH intake, Sleep hygiene, Behavior activation and General coping skills Details-Self Mgmt counseling: discussed moving slowly from sitting to standing position or lying down to stanf=ding to decrease dizziness and risk of fall Medication management counseling: Effectiveness, Side effects, Dosing range, Duration, Drug interaction and Adherence Diagnosis and Prognosis Counseling: Accuracy of diagnosis, Prognosis over time, Impact of diagnosis on life functions, Impact of family relationship, Problematic behaviors secondary to diagnosis and Adequacy of current interventions Details: I spent 30 minutes reviewing the record, seeing the patient and documenting in the medical record. Counseling provided to the patient/caregiver as outlined below. Addressed patient/caregiver concerns regarding current medication regime including effective adherence. Addressed patient/caregiver concerns regarding diagnosis and prognosis including accuracy of diagnosis, prognosis over time, impact of diagnosis. Addressed patient/caregiver concerns regarding impact of recent stressors. [facility] Medical History (Updated 08/02/24 @ 12:42 by Darron Daniel MD) Shoulder pain, left Vertigo Dermatitis of face Finger pain, right TSH elevation Hearing difficulty of right ear Hematuria Personal history of nicotine dependence History of COVID-19 Hearing deficit Bile salt-induced diarrhea Generalized anxiety disorder with panic attacks Impaired glucose tolerance Irritable bowel syndrome Renal insufficiency Left cervical radiculopathy Overweight Insomnia Hypercholesterolemia Surgical History History of repair of ACL History of cholecystectomy History of lithotripsy Family History Father Hypothyroid Mother Cervical cancer Maternal Aunt Ovarian cancer Sister Epilepsy Social History Housing: Apartment Alcohol intake: current Alcohol intake frequency: does not drink Patient Tobacco Use Status: Former Tobacco user Tobacco use type: Cigarette Years Smoked: quit 2009 e-Cigarette/Vaping Use: Never Used Second Hand Smoke Exposure: No Current occupational status: employed Cognitive needs: No Hearing needs: No Vision needs: Yes Social History: lives with ; 3 adult children 2 sons [address] across [address]; daughter lives in [facility]. Substance History: none Trauma History: denies Coding Level of Care Code Est Pt Level 4 (45909) Diagnoses Major depressive disorder, recurrent, moderate F33.1 Generalized anxiety disorder with panic attacks F41.1; F41.0
== END 2024-08-02 16:22 | disposition home or self-care (01) ==
LOC: HO.HOP 16:00
PROVIDERS: PCP Internal Medicine; Visit Provider Clinical Nurse Specialist Psychiatric/Mental Health
DX: F33.1 Major depressive disorder, recurrent, moderate (principal); F41.1 Generalized anxiety disorder; F41.0 Panic disorder [episodic paroxysmal anxiety]
CPT/HCPCS: 99214

== ENCOUNTER → 2024-08-02 16:00 | Outpatient (BNVA) | payer OTHER, SELFPAY | PROVIDERS: PCP Internal Medicine; Visit Provider Clinical Nurse Specialist Psychiatric/Mental Health | DX: F33.1 Major depressive disorder, recurrent, moderate (principal); F41.1 Generalized anxiety disorder; F41.0 Panic disorder [episodic paroxysmal anxiety] | CPT/HCPCS: 99212 ==

== ENCOUNTER 2024-11-24 10:26 | Outpatient (REF) | payer OTHER, SELFPAY ==
[2024-11-24 10:34] LABS: MANUAL DIFF FLAG NO
[2024-11-24 10:51] LABS: Basophils Percent Auto 0.5 % (0-2); Eosinophils Absolute Auto 0.1 X10*3/uL (0.0-0.4); Eosinophils Percent Auto 1.3 % (0-4); Hematocrit 43.6 % (37.0-47.0); Hemoglobin 14.4 g/dl (12.0-16.0); Imm Gran Abs Auto 0.03 X10*3/uL (0.00-0.03); Imm Gran Pct Auto 0.3 % (0.0-0.4); Lymphocytes Absolute Auto 2.4 X10*3/uL (1.2-4.9); Lymphocytes Percent Auto 27.4 % (20-40); Mean Corpuscular Hemoglobin 31.6 pg (27.0-33.0); Mean Corpuscular Volume 95.8 fL (80.0-98.0); Mean Platelet Volume 9.8 fL (9.4-12.3); Monocytes Absolute Auto 0.7 X10*3/uL (0.1-1.2); Monocytes Percent Auto 7.5 % (2-11); Neutrophils Absolute Auto 5.5 x10*3/uL (2.0-8.3); Platelet Count 290 X10*3/uL (160-400); Red Blood Count 4.55 X10*6/uL (4.20-5.50); Red Cell Distribution Width 13.2 % (11.0-16.0); White Blood Count 8.7 X10*3/uL (4.8-10.8)
[2024-11-24 11:04] LABS: Estimated Average Glucose 111 mg/dL; Hemoglobin A1C 132.6743 umol/L; Hemoglobin A1c % 5.5 % (<6.0); Total Hemoglobin (HGBA1C) 3641.7981 umol/L
[2024-11-24 11:38] LABS: Alanine Aminotransferase 25 U/L (0-31); Albumin Level 4.2 g/dL (3.5-5.0); Alkaline Phosphatase 70 U/L (39-117); Anion Gap 12 (12-20); Aspartate Amino Transferase 21 U/L (5-31); Bilirubin Total 0.4 mg/dL (0.0-1.0); Blood Urea Nitrogen 19 mg/dL (9-16); Calcium 9.5 mg/dL (8.4-10.2); Carbon Dioxide 26 mmol/L (22-29); Chloride 110 mmol/L (96-108); Cholesterol 200 mg/dL (<200); Estimated Glomerular Filt Rate > 60; Glucose Random 96 mg/dL (60-115); HDL Cholesterol 58 mg/dL (>40); LDL Cholesterol Calculated 108 mg/dL (<100); Sodium 144 mmol/L (135-145); Total Protein 6.8 g/dL (6.5-8.0); Triglycerides 172 mg/dL (<150)
[2024-11-24 11:58] LABS: Free T4 (Free Thyroxine) 0.85 ng/dL (0.71-1.85); Thyroid Stimulating Hormone 3.37 uIU/mL (0.32-4.0); Vitamin D 25-OH Total 41.4 ng/mL (>30)
[2024-11-24 12:03] LABS: Vitamin B12 207 pg/mL (200-900)
== END 2024-11-24 10:27 | disposition home or self-care (01) ==
LOC: HO.LAB 10:26
PROVIDERS: PCP Internal Medicine; Visit Provider Internal Medicine
DX: E78.00 Pure hypercholesterolemia, unspecified (principal); R73.02 Impaired glucose tolerance (oral)
CPT/HCPCS: 36415; 80053; 80061; 82306; 82607; 82746; 83036; 84439; 84443; 85025

== ENCOUNTER 2024-11-27 10:16 | Outpatient (AMB) | payer OTHER, SELFPAY ==
--- NOTE | 2024-11-27 10:19 | A.OFFPC_ITS ---
Vital Signs 11/27/24 10:20 Height 5 ft 4 in Weight 148 lb BMI 25.4 BP 112/70 Blood Pressure Location Lt brachial Position Sitting Pulse 72 Pulse Source Pulse Oximeter Pulse Oximetry (%) 96 Oxygen Delivery Method Room Air Intake Visit Reasons: ANNUAL Allergies bupropion [From Wellbutrin] Allergy (Unknown, Verified 11/27/24 10:21) altered mental status naproxen Allergy (Unknown, Verified 11/27/24 10:21) stomach pain,nausea and black stools Medication List - Last Reconciled 11/27/24 by Darron Daniel MD celecoxib (Celebrex) 200 mg PO DAILY dicyclomine 20 mg PO BID 90 days fluoxetine (Prozac) 40 mg PO DAILY lorazepam 1 mg PO DAILY PRN 90 days rosuvastatin 10 mg PO DAILY trazodone 100 mg PO BEDTIME Tobacco use date assessed: 11/27/24 Dental Screening Dental Screen Date: 11/27/24 Did you have a dental visit in the last 12 months?: Yes Did you have a dental problem in the last 6 months where you did not have access to dental care?: No Was dental information given to patient?: Patient has dentist HPI ANNUAL HPI Details The patient is a 64-year-old female presenting with multiple ongoing health concerns, primarily essential hypertension, managed with combination therapy and regular monitoring. She also has a history of major depressive disorder, currently stable on fluoxetine without reported issues. 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 The patient also reports bilateral ear fullness, suspected eustachian tube dysfunction, contributing to vertigo for which she previously sought treatment at [facility] and is currently undergoing physical therapy. A familial predisposition to cancer is noted, with her mother having cervical cancer and an aunt with ovarian cancer. Her recent rotator cuff surgery on her left shoulder in May was successful, with no complications reported. - Advised to maintain hydration to addre ss electrolyte balance. - Discussed the importance of regular ex ercise and a balanced diet. - Annual mammogram was recommended and d iscussed scheduling. - Reviewed vaccination status: Shingles vaccine administered; Pneumonia vaccination is up-to-date; Tetanus shot pending. - Scheduled annual lung cancer screening with CAT scan. - Encouraged maintaining dietary control to manage dyslipidemia. - Abstains from alcohol; occasional cons umption every six months. - Quit smoking; has been smoke-free for several years. - Desired improved diet hydration levels . - Does not engage in regular exercise re gimen. - Cardiovascular: Denies chest pain, hea rtburn. - Gastrointestinal: Reports multiple bow el movements daily. - Respiratory: Denies shortness of breat h, but is scheduled for a CAT scan. - ENT: Reports bilateral ear fullness, d enies nasal congestion. - Labs: Complete blood count normal; sod ium slightly elevated; vitamin B12 level low at 207. - Screenings: Past colonoscopy in 2020; consistent lung screening scheduled for January. [facility] Medical History (Updated 11/27/24 @ 11:35 by Darron Daniel MD) Shoulder pain, left Vertigo Dermatitis of face Finger pain, right TSH elevation Hearing difficulty of right ear Hematuria Personal history of nicotine dependence History of COVID-19 Hearing deficit Bile salt-induced diarrhea Generalized anxiety disorder with panic attacks Impaired glucose tolerance Irritable bowel syndrome Renal insufficiency Left cervical radiculopathy Overweight Insomnia Hypercholesterolemia Surgical History History of repair of ACL History of cholecystectomy History of lithotripsy Family History Father Hypothyroid Mother Cervical cancer Maternal Aunt Ovarian cancer Sister Epilepsy Social History (Updated 11/27/24 @ 11:13 by Darron Daniel MD) Housing: Apartment Alcohol intake: current Alcohol intake frequency: does not drink Comment: once Q 6 month1 drink Patient Tobacco Use Status: Former Tobacco user Tobacco use type: Cigarette Years Smoked: quit 2009 e-Cigarette/Vaping Use: Never Used Second Hand Smoke Exposure: No Current occupational status: employed Cognitive needs: No Hearing needs: No Vision needs: Yes Questionnaire PHQ-9 Over the last 2 weeks, how often have you been bothered by any of the following problems? 1. Little interest or pleasure in doing things: not at all 2. Feeling down, depressed, or hopeless: not at all 3. Trouble falling or staying asleep, or sleeping too much: not at all 4. Feeling tired or having little energy: not at all 5. Poor appetite or overeating: not at all 6. Feeling bad about yourself - or that you are a failure or have let yourself or your family down: not at all 7. Trouble concentrating on things, such as reading the newspaper or watching television: not at all 8. Moving or speaking so slowly that other people could have noticed. Or the opposite - being so fidgety or restless that you have been moving around a lot more than usual: not at all 9. Thoughts that you would be better off or of hurting yourself in some way: not at all Total score: 0 Source: Developed by Drs. Jackson Jackson, Marcelle Wolf, Andrés Cervantes and colleagues, with an educational josseline from [employer]. Thrive Questionnaire Date Thrive assessed: 11/27/24 I am a: Patient What is your living situation today?: I have a steady place to live Within the past 12 months, did the food you bought not last and you didn't have the money to get more?: Never true Within the past 12 months, did you worry whether your food would run out before you got money to buy more?: Never true Do you have trouble paying for medicines?: No Do you have trouble getting transportation to medical appointments?: No Do you have trouble paying your heating and electricity bill?: No Do you have trouble taking care of your child, family member or friend?: No Do you have trouble with day-to-day activities such as bathing, preparing meals, shopping, managing finances, etc.?: No Are you currently unemployed and looking for a job?: No Are you interested in more education?: No Please select the resources that you would like help with: None Currently or been in a relationship where the following occur: No concerns reported THRIVE Score: 0 AUDIT C Alcohol Use Questionnaire (AUDIT-C) 1. How often do you have a drink containing alcohol?: Monthly or less 2. How many drinks containing alcohol do you have on a typical day when you are drinking?: 1 or 2 3. How often do you have six or more drinks on one occasion?: Never Total Score: 1 ISAIAS-7 AMB Questionnaire ISAIAS-7 Date ISAIAS - 7 assessed: 11/27/24 Feeling nervous, anxious, or on edge: 0 = Not at all Not being able to stop or control worryin = Not at all Worrying too much about different things: 0 = Not at all Trouble relaxin = Not at all Being so restless that it is hard to sit still: 0 = Not at all Becoming easily annoyed or irritable: 0 = Not at all Feeling afraid as if something awful might happen: 0 = Not at all Total ISAIAS-7 score (0-4 normal; 5-9 mild; 10-14 moderate; 15-21 severe): 0 Source: Developed by Drs. Jackson Jackson, Marcelle Wolf, Andrés Cervantes and colleagues, with an educational josseline from [employer]. Review of Systems Const Denies poor appetite and Denies weakness Eyes Denies no additional complaints ENT Reports Normal hearing present, Denies dizziness, Denies nasal congestion, Denies tinnitus and Denies sore throat Card Denies chest pain, Denies syncope, Denies rapid heart rate and Denies dyspnea Resp Denies cough and Denies dyspnea GI Denies change in stool character, Reports constipation, Denies diarrhea, Denies nausea and Denies vomiting Denies urinary frequency, Denies difficulty voiding and Denies dysuria Neuro Reports Normal hearing present, Denies confusion, Denies dizziness, Denies syncope and Denies weakness Psych Denies confusion Physical exam (Primary Care) Vital Signs: Last Vital Signs Pulse 72 11/27/24 10:20 BP 112/70 11/27/24 10:20 Pulse Ox 96 11/27/24 10:20 Oxygen Delivery Method Room Air 11/27/24 10:20 BMI result Body Mass Index 25.4 Tobacco/Smoking Status: Tobacco use Status Tobacco use date assessed 11/27/24 11/27/24 10:23 Patient Tobacco Use Status Former Tobacco user 11/27/24 11:13 Tobacco use type Cigarette 11/27/24 11:13 e-Cigarette/Vaping Use Never Used 11/27/24 11:13 PHQ-9: PHQ-9 Score PHQ-9: Total score 0 11/27/24 11:46 Thrive Assessment: Date of Thrive Assessment Date Thrive assessed 11/27/24 11/27/24 10:23 Currently or been in a relationship where the following occur: No concerns reported Const General: No confusion Orientation/consciousness: No confusion HENMT Head: Yes normocephalic Ears: external ears normal and TM's normal bilaterally Face and sinus: Yes normal facial exam Mouth: moist mucous membranes Throat: Yes tonsils normal Eyes Conjunctivae: conjunctivae normal Pupils: Equal, round and reactive pupils present and Pupil accommodation reflex normal Direct Ophthalmoscopy: normal light reflex Neck Neck: No lymphadenopathy Thyroid: Thyroid normal Chest Chest palpation & inspection: normal inspection of the chest Resp Effort & Inspection: normal respiratory effort and no audible wheezes Auscultation: clear to auscultation bilaterally, no crackles, no wheezes and lung sounds not diminished Cardio Rate: regular rate Rhythm: regular rhythm Peripheral pulses: radial pulses present and dorsalis pedis present GI Other: guaiac negative Palpation (GI): no masses Auscultation: normal bowel sounds and normoactive bowel sounds Skin General skin exam: no rashes or lesions noted Rashes: no rashes Neuro General: No confusion Cranial nerves: Yes Equal, round and reactive pupils present and Yes Normal hearing present Cognition (Neuro): normal cognition Gait exam (Neuro): Normal gait present Motor exam (neuro): 5/5 motor strength present throughout Deep tendon reflexes (DTR's): Right brachioradialis reflex intensity grade: 2+, Left brachioradialis reflex intensity grade: 2+, Right patellar reflex intensity grade: 2+ and Left patellar reflex intensity grade: 2+ Extrem General: No edema Immunizations tetanus-diphtheria toxoids-Td 2 Lf unit-2 Lf unit/0.5 mL IM suspension Performing Provider: Darron Daniel MD Performing [facility] [place] [facility] Administered by: KARIME Gill on 11/27/24 11:46 Dose Route Admin Location Dispensed Lot Number Expiration Date [facility] Strategy Specialist 0.5 mL IM Right Deltoid 0.5 mL [id number] 12/31/24 [address]-0 [employer] VIS Given Date VIS Provided VIS Publication Date 11/27/24 Single Vaccine 21 Eligibility Eligibility Date Funding Source Not [facility] Eligible 11/27/24 State funds Coding Level of Care Code Est Pt Prev Care 40-64y(42075) Diagnoses Annual physical exam Z00.00 Major depressive disorder, recurrent, moderate F33.1 Vitamin B12 deficiency E53.8 Impaired glucose tolerance R73.02 Hypercholesterolemia E78.00 Personal history of nicotine dependence Z87.891 Fullness in both ears H93.8X3 Onychomycosis B35.1 Assessment & Plan Assessment & Plan (1) Annual physical exam: Code(s): Z00.00 - Encounter for general adult medical examination without abnormal findings Category: Medical (2) Major depressive disorder, recurrent, moderate: Code(s): F33.1 - Major depressive disorder, recurrent, moderate Category: Medical (3) Vitamin B12 deficiency: Code(s): E53.8 - Deficiency of other specified B group vitamins Category: Medical (4) Impaired glucose tolerance: Code(s): R73.02 - Impaired glucose tolerance (oral) Category: Medical (5) Hypercholesterolemia: Code(s): E78.00 - Pure hypercholesterolemia, unspecified Category: Medical (6) Personal history of nicotine dependence: Comment: (former smoker - onset 17yo, 1ppd x 33yrs, 30pyh - quit 2009) October [address]22 CT scan, January 2024 right upper 2 mm lobe nodule Code(s): Z87.891 - Personal history of nicotine dependence Category: Medical (7) Fullness in both ears: Code(s): H93.8X3 - Other specified disorders of ear, bilateral Category: Medical (8) Onychomycosis: Code(s): B35.1 - Tinea unguium Category: Medical Plan - Continue current antihypertensive medication regimen. - Transition dicyclomine to Prevalite for potential bile acid-induced diarrhea. - Recommend vitamin supplementation due to deficiency. - Refer to ENT for evaluation regarding persistent ear fullness and vertigo management. - Proposal for referral to a motorcycle delivery driver for further management of fungal infections. - Continue monitoring cholesterol and lipid profiles regularly. - Record and follow through with the referral to neurologist Dr. Waldrop for vertigo evaluation. I discussed the stable management of the patient's hypertension regimen and the need to supplement for vitamin B12 deficiency. I emphasized Prevalite as a prom ising treatment for her diarrhea related to past cholecystectomy issues. We talked about the importance of an ENT referral for chronic ear fullness, along with considerations for seeing a neurologist for comprehensive vertigo management. The patient was advised on routine health screenings and necessary vaccinations. Complete education was provided about fungal nail treatment, including oral medication today with monitoring liver health during treatment. Documented the need for further regular monitoring and a follow-up check once treatments are initiated. - Continue taking hypertension prescriptions as directed. - Start Prevalite for diarrhea; inform the clinic if discomfort persists. - Obtain vitamin B12 supplements for daily intake; consider repeating labs to ensure efficacy. - Consult with ENT for ongoing ear fullness; follow ear care instructions as advised. - Schedule referred appointments with Dr. Waldrop and motorcycle delivery driver as discussed. - Maintain hydration; actively incorporate fluids into daily consumption. - Follow preventative health guidelines, including scheduling your mammogram and chest CAT scan. - If symptoms worsen or new issues arise, contact the clinic immediately. Orders: Orders Liver Panel 1 Month B35.1 - Tinea unguium, R79.89 - Other specified abnormal findings of blood chemistry Td State Immunization Today Z23 - Encounter for immunization Referrals Ear/Nose/Throat Referral H93.8X3 - Other specified disorders of ear, bilateral Neurology Referral H81.10 - Benign paroxysmal vertigo, unspecified ear Medications: New cyanocobalamin (vitamin B-12) 1,000 mcg PO DAILY 90 caps 1RF E53.8 - Deficiency of other specified B group vitamins, H93.8X3 - Other specified disorders of ear, bilateral terbinafine HCl 250 mg PO DAILY 84 tabs 0RF 12 weeks B35.1 - Tinea unguium cholestyramine-aspartame 4 gram (Cholestyramine Light) administer w/meal; avoid other meds within 1hr before or 4-6hr after dose 4 grams PO BID 60 ea 2RF Discontinued dicyclomine Discontinued Reason: Doctor's Order 20 mg PO BID 90 days 180 tabs 1RF K58.9 - Irritable bowel syndrome, unspecified
[2024-11-27 10:20] VITALS: BP 112/70; PULSE 72; O2SAT 96; BMI 25.4
--- OUTSIDE RECORDS SUMMARY | 2024-11-27 10:59 | XMS_ITS | Continuity of Care Document ---
Author Name [facility] Organization [facility] Care Team Providers Care Spanish Tutor Name Role Phone [facility] Unavailable Unavailable Social History Combined list of available smoking, tobacco, and other social history from Department of Defense and Veterans Affairs facilities. Social History Type Response Date Comment Sourc e This section is an empty social history section. [facility]
== END 2024-11-27 11:50 | disposition home or self-care (01) ==
PROVIDERS: PCP Internal Medicine; Visit Provider Internal Medicine
DX: Z00.00 Encounter for general adult medical examination without abnormal findings (principal); F33.1 Major depressive disorder, recurrent, moderate; E53.8 Deficiency of other specified B group vitamins; R73.02 Impaired glucose tolerance (oral); E78.00 Pure hypercholesterolemia, unspecified; Z87.891 Personal history of nicotine dependence; H93.8X3 Other specified disorders of ear, bilateral; B35.1 Tinea unguium; Z23 Encounter for immunization

== ENCOUNTER → 2024-11-27 10:16 | Outpatient (BNVA) | payer OTHER, SELFPAY | PROVIDERS: PCP Internal Medicine; Visit Provider Internal Medicine | DX: Z00.00 Encounter for general adult medical examination without abnormal findings (principal); F33.1 Major depressive disorder, recurrent, moderate; E53.8 Deficiency of other specified B group vitamins; I10 Essential (primary) hypertension; R73.02 Impaired glucose tolerance (oral); E78.00 Pure hypercholesterolemia, unspecified; H93.8X3 Other specified disorders of ear, bilateral; B35.1 Tinea unguium; Z23 Encounter for immunization; Z87.891 Personal history of nicotine dependence | CPT/HCPCS: 90471; 90714; 96127 ==

== ENCOUNTER 2024-11-27 13:03 | Outpatient (RCR) | payer OTHER, SELFPAY ==
[2024-08-15 08:15] VITALS: BP 106/72
--- NOTE | 2024-08-17 08:40 | MHC.PT.EP ---
[facility] [place] Office [place] Office [place] Office [address] [phone] F: [phone] F: [phone] F: [phone] F: [phone] Physical Therapy Plan of Care Date of Evaluation: 08/15/24 Date of Surgery: Diagnosis: VERTIGO (KP) Assessment: RAMÓN IS A PLEASANT 64 YO FEMALE WHO PRESENTS WITH MULTIYEAR HISTORY OF VERTIGO. SHE REPORTS NEARLY CONSTANT SYMPTOMS. SHE REPORTS THERAPY HAS HELPED IN THE PAST. HER SYMPTOMS ARE NOW WORSENING AND SHE IS HAVING DIFFICULTY WITH HOMEMAKING AND SELF CARE TASKS. REPORTS TINNITUS AND FEELING OF FULLNESS IN THE RIGHT EAR. UPON EXAM SHE TESTS NEGATIVE FOR BPPV BUT DEMONSTRATES SIGNIFICANT VESTIBULAR HYPOFUNCTION AND WILL BENEFIT FROM PT TO ADDRESS THESE DEFICITS. Frequency and Duration: The patient will be seen 2 X WEEK FOR 6 WEEKS Short Term Goals: initiate HEP Care Home Goals: 1. I with HEP 2. Improve DGI to 20/24 3. Pt to be able to functionally move in all planes without provocation of dizziness and return to PLOF in 4 weeks 4. Pt to be educated on sx and indications to return to therapy when needed Treatment Plan: Modalities to reduce pain, spasms and effusion. Manual therapy to restore motion and function. Therapeutic exercise to improve strength and flexibility. Neuromuscular re-education for posture and balance. Therapeutic activities to return to functional activities of daily living. Electronically signed by: JAUN CAROMNA PT DPT Please sign and return to therapist. Thank you for your referral.
== END 2025-01-16 11:33 | disposition home or self-care (01) ==
LOC: HO.PT 13:03
PROVIDERS: PCP Internal Medicine; Visit Provider Internal Medicine
DX: H81.10 Benign paroxysmal vertigo, unspecified ear (principal)
CPT/HCPCS: 97112; 97162; 97530; 97535

== ENCOUNTER 2025-02-01 12:04 | Outpatient (REF) | payer OTHER, SELFPAY ==
--- NOTE | ~2025-02-01 | CT_ITS ---
CLINICAL HISTORY: Z87.891 - Personal history of nicotine dependence CT lung cancer screening (LDCT) Comparison: CT/[place]/SR - CT LUNG SCREENING - 02/01/24 15:[address]/SR - CT LUNG SCREENING - 10/29/22 16:12 EST Technique: Axial CT images of the chest using low-dose technique. Referring provider counseled the patient on shared decision-making for LDCT screening. Additional counseling was provided on smoking cessation. Effective radiation dose total: DLP 29.1 mGycm, CTDIvol 0.9 mGy. Findings: Pulmonary nodules: Faint 2.5 mm right upper lobe nodule, axial 47. No new, suspicious or increasing nodule. Incidental pulmonary findings: Mild centrilobular emphysema paraseptal blebs of the lung apices. Airway thickening. Regions of scarring and/or atelectasis anteriorly at the lung bases [id number]. Non pulmonary findings: Coronary artery calcifications: Minimal Limited upper abdomen: Unremarkable Other: None Impression: LungRADS 2 - Benign Appearance: Continue annual screening with low dose Chest CT in 12 months. ##L2# Category 1: Normal; continue annual screening Category 2: Benign appearance or behavior, continue annual screening Category 3: Probably benign, [address] recommended Category 4A: Suspicious, [address] recommended; may consider PET/CT Category 4B: Suspicious, Additional diagnostics and/or tissue sampling recommended Category 4X: Suspicious, Additional diagnostics and/or tissue sampling recommended Category 0: Recalls (incomplete screen due to Incomplete coverage, Noise, Respiratory motion, Expiration, Obscured by acute abnormality) This document has been electronically signed by: Willian Castrejon MD on 02/02/2025 09:36:09
--- OUTSIDE RECORDS SUMMARY | 2025-02-01 13:47 | XMS_ITS | Clinical Summary ---
Author Organization [facility] Address [address] [place] [address] Care Team Providers Care Supervisor Hide House Name Role Phone César Boswell Primary Care Provider [phone] Allergies Active Allergy Reactions Criticality Noted Date Comments Bupropion 03/15/2017 Change in thoughts crazy thoughts Medications Atorvastatin Calcium 10 MG Tab TK 1 T PO QD 1 7 Active Citalopram Hydrobromide 20 MG Tab TK 1 AND 11/22 TS PO QD 1 7 Active LORazepam 0.5 MG Tab TK 1 T PO BID PRN FOR ANXIETY 3 6 Active TraZODone HCl 100 MG Tab TK 1 T PO QHS 1 7 Active Triamterene-HCTZ 37.5-25 MG Tab TK 1 T PO QD 3 7 Active Social History Tobacco Use Types Packs/Day Years Used Date Smoking Tobacco: Former Comments No Sex and Gender Information Value Date Recorded Sex Assigned at Not on file Legal Sex Female 11:43 AM EDT Gender Identity Not on file Sexual Orientation Not on file Last Filed Vital Signs Vital Sign Reading Time Taken Comments Blood Pressure 124/80 03/15/2017 12:12 PM EDT Pulse 84 03/15/2017 12:12 PM EDT Temperature 37.1 ??C (98.7 ??F) 03/15/2017 12:12 PM E DT Respiratory Rate 16 03/15/2017 12:12 PM EDT Oxygen Saturation - - Inhaled Oxygen Concentration - - Weight - - Height - - Body Mass Index - - Plan of Treatment Health Maintenance Due Date Last Done Comments Hepatitis C Screening 1962 Pap Smear 1978 DTaP/Tdap/Td (1 - Tdap) 1980 Mammogram/Breast Imaging 2002 Pneumococcal 50+ years (1 of 1 - PCV) 2012 Zoster (Shingrix) (1 of 2) 2012 COVID-19 Vaccine (1 - 2023-2 5 season) 2024 Influenza (#1) 2024 RSV (1 - 1-dose 75+ series) 2037 HPV Vaccine Aged Out No longer eligi ble based on patient's age to complete this topic Hep A Aged Out No longer eligi ble based on patient's age to complete this topic Hep B Aged Out No longer eligi ble based on patient's age to complete this topic Hib Aged Out No longer eligi ble based on patient's age to complete this topic Meningococcal ACWY Aged Out No longer eligible based on patient's age to complete this topic Zoster (Zostavax) Discontinued Insurance * Guarantor: [id number] Pricing Engine Account Type Relation to Patient Date of Phone Billing Address [employer] [address] [place] [address] [employer] Care Teams Supervisor Hide House Relationship Specialty Start Date End Date César Boswell [facility] [address] PCP - General Family Medicine 03/15/17
== END 2025-02-01 12:05 | disposition home or self-care (01) ==
LOC: HO.CT 12:04
PROVIDERS: PCP Internal Medicine; Visit Provider Nurse Practitioner Family
DX: Z12.2 Encounter for screening for malignant neoplasm of respiratory organs (principal); Z87.891 Personal history of nicotine dependence
CPT/HCPCS: 71271

== ENCOUNTER → 2025-02-01 12:06 | Outpatient (BNV) | payer OTHER, SELFPAY | PROVIDERS: PCP Internal Medicine; Visit Provider Radiology Vascular & Interventional Radiology | DX: Z87.891 Personal history of nicotine dependence (principal) | CPT/HCPCS: 71271 ==

== ENCOUNTER 2025-05-15 11:06 | Outpatient (RCR) | payer OTHER, SELFPAY ==
[2025-04-25 10:14] VITALS: BP 128/57; PULSE 78
--- NOTE | 2025-04-25 11:27 | MHC.PT.EP ---
[facility] [place] Office [place] Office [place] Office [address] [phone] F: [phone] F: [phone] F: [phone] F: [phone] Physical Therapy Plan of Care Date of Evaluation: 04/25/25 Date of Surgery: NA Diagnosis: Vertigo Assessment: Lucila is a 65 year old female who is referred to PT for BPPV . Pt reports of having sudden onset of dizziness, CLINE, pressure in her head and ears and unsteadiness with walking and quick head turns about 2 months. She has had similar symptoms but less intense in the past and PT helped her. She denies having any head injury, ear infection or sinus infection. On PT examination she reported of having fullness and pressure in her head and ears, pounding CLINE, unsteadiness, nausea with walking, quick head turns, supine to sit, driving and reading. She presented with intact saccades, smooth pursuit, visual tracking, negative VBI, negative head thrust and was negative for BPPV in B barney pikes and B roll test. She lives with family and is independent with all ADLS but does them slowly due to feeling unsteady. She is retired. She will benefit from skilled PT to address the aforementioned impairments and improve tolerance to functional activities. Frequency and Duration: The patient will be seen 2/week for 7 weeks Short Term Goals: 1. Assess static and dynamic balance in 2 weeks 2. Pt will demonstrate initiation of HEP in 3 weeks Housecleaner Goals: 1. Pt will be able to read and drive without any symptoms of dizziness in 5 weeks 2. Pt will be able to ambulate without feeling unsteady/ off balance in 6 weeks 3. Pt will be independent with all HEP for symptom management and maintenance following d/c in 7 weeks Treatment Plan: Modalities to reduce pain, spasms and effusion. Manual therapy to restore motion and function. Therapeutic exercise to improve strength and flexibility. Neuromuscular re-education for posture and balance. Therapeutic activities to return to functional activities of daily living. Electronically signed by: Esther Duncan PT DPT Please sign and return to therapist. Thank you for your referral.
--- NOTE | 2025-06-26 14:22 | MHC.PT.DC ---
[facility] [place] Office [place] Office [place] Office [address] [facility] [phone] F: [phone] F: [phone] F: [phone] F: [phone] Physical Therapy Discharge Report Diagnosis: Vertigo Date of Surgery: NA Date of Evaluation: 04/25/25 Date of Discharge: 06/26/25 Treatments to Date: 3 Cancellations to Date: 0 No Shows to Date: 0 Discharge Status: Achieved Goals Improved Function Independent with HEP Discharge Summary: Lucila has not had any symptoms of vestibular dysfunction on over a month. She is therefore being d/c from PT. Electronically signed by: Esther Duncan PT DPT Please sign and return to therapist. Thank you for your referral.
== END 2025-06-26 14:23 | disposition home or self-care (01) ==
LOC: HO.PT 11:06
PROVIDERS: PCP Internal Medicine; Visit Provider Internal Medicine
DX: H81.10 Benign paroxysmal vertigo, unspecified ear (principal)
CPT/HCPCS: 97112; 97161

== ENCOUNTER 2025-07-10 10:12 | Outpatient (AMB) | payer OTHER, SELFPAY ==
--- NOTE | 2025-07-10 10:19 | A.OFFPC_ITS ---
Vital Signs 07/10/25 10:21 07/10/25 10:42 Height 5 ft 4 in 5 ft 4 in Weight 146 lb 6 oz BMI 25.1 BP 110/66 Blood Pressure Location Lt brachial Rt brachial Position Sitting Sitting Respiration 18 Pulse 78 Pulse Source Pulse Oximeter Pulse Oximeter Temp Source Temporal Artery Scan Pulse Oximetry (%) 96 Oxygen Delivery Method Room Air Room Air Intake Visit Reasons: Vertigo symptoms Retail Area Manager Required: No Accompanied by: Self / Same As Patient Allergies bupropion (From Wellbutrin) Allergy (Unknown, Verified 07/10/25 10:44) altered mental status naproxen Allergy (Unknown, Verified 07/10/25 10:44) stomach pain,nausea and black stools Tobacco use date assessed: 07/10/25 Dental Screening Dental Screen Date: 07/10/25 Did you have a dental visit in the last 12 months?: Yes Did you have a dental problem in the last 6 months where you did not have access to dental care?: No Was dental information given to patient?: Patient has dentist [facility] Medical History (Updated 07/10/25 @ 11:11 by Darron Daniel MD) Dermatitis of face Shoulder pain, left Vertigo Finger pain, right TSH elevation Hearing difficulty of right ear Hematuria Personal history of nicotine dependence History of COVID-19 Hearing deficit Bile salt-induced diarrhea Generalized anxiety disorder with panic attacks Impaired glucose tolerance Irritable bowel syndrome Renal insufficiency Left cervical radiculopathy Overweight Insomnia Hypercholesterolemia Surgical History (Updated 07/10/25 @ 10:58 by Darron Daniel MD) History of repair of ACL History of cholecystectomy History of lithotripsy Family History Father Hypothyroid Mother Cervical cancer Maternal Aunt Ovarian cancer Sister Epilepsy Social History Housing: Apartment Alcohol intake: current Alcohol intake frequency: does not drink Comment: once Q 6 month1 drink Patient Tobacco Use Status: Former Tobacco user Tobacco use type: Cigarette Years Smoked: quit 2009 e-Cigarette/Vaping Use: Never Used Second Hand Smoke Exposure: No Current occupational status: employed Cognitive needs: No Hearing needs: No Vision needs: Yes Questionnaire PHQ-9 Over the last 2 weeks, how often have you been bothered by any of the following problems? 1. Little interest or pleasure in doing things: not at all 2. Feeling down, depressed, or hopeless: not at all 3. Trouble falling or staying asleep, or sleeping too much: not at all 4. Feeling tired or having little energy: not at all 5. Poor appetite or overeating: not at all 6. Feeling bad about yourself - or that you are a failure or have let yourself or your family down: not at all 7. Trouble concentrating on things, such as reading the newspaper or watching television: not at all 8. Moving or speaking so slowly that other people could have noticed. Or the opposite - being so fidgety or restless that you have been moving around a lot more than usual: not at all 9. Thoughts that you would be better off or of hurting yourself in some way: not at all Total score: 0 Source: Developed by Drs. Jackson Jackson, Marcelle Wolf, Andrés Cervantes and colleagues, with an educational josseline from [employer]. Thrive Questionnaire Date Thrive assessed: 07/10/25 I am a: Patient What is your living situation today?: I have a steady place to live Within the past 12 months, did the food you bought not last and you didn't have the money to get more?: Never true Within the past 12 months, did you worry whether your food would run out before you got money to buy more?: Never true Do you have trouble paying for medicines?: No Do you have trouble getting transportation to medical appointments?: No Do you have trouble paying your heating and electricity bill?: No Do you have trouble taking care of your child, family member or friend?: No Do you have trouble with day-to-day activities such as bathing, preparing meals, shopping, managing finances, etc.?: No Are you currently unemployed and looking for a job?: No Are you interested in more education?: No Please select the resources that you would like help with: None Currently or been in a relationship where the following occur: No concerns reported THRIVE Score: 0 AUDIT C Alcohol Use Questionnaire (AUDIT-C) 1. How often do you have a drink containing alcohol?: Monthly or less 2. How many drinks containing alcohol do you have on a typical day when you are drinking?: 1 or 2 3. How often do you have six or more drinks on one occasion?: Never Total Score: 1 ISAIAS-7 AMB Questionnaire ISAIAS-7 Date ISAIAS - 7 assessed: 07/10/25 Feeling nervous, anxious, or on edge: 0 = Not at all Not being able to stop or control worryin = Not at all Worrying too much about different things: 0 = Not at all Trouble relaxin = Not at all Being so restless that it is hard to sit still: 0 = Not at all Becoming easily annoyed or irritable: 0 = Not at all Feeling afraid as if something awful might happen: 0 = Not at all Total ISAIAS-7 score (0-4 normal; 5-9 mild; 10-14 moderate; 15-21 severe): 0 Source: Developed by Drs. Jackson Jackson, Marcelle Wolf, Andrés Cervantes and colleagues, with an educational josseline from [employer]. Physical exam (Primary Care) Vital Signs: Last Vital Signs Pulse 78 07/10/25 10:42 Resp 18 07/10/25 10:42 BP 110/66 07/10/25 10:42 Pulse Ox 96 07/10/25 10:42 Oxygen Delivery Method Room Air 07/10/25 10:42 BMI result Body Mass Index 25.1 Tobacco/Smoking Status: Tobacco use Status Tobacco use date assessed 07/10/25 07/10/25 10:22 Patient Tobacco Use Status Former Tobacco user 07/10/25 10:22 Tobacco use type Cigarette 07/10/25 10:22 e-Cigarette/Vaping Use Never Used 07/10/25 10:22 PHQ-9: PHQ-9 Score PHQ-9: Total score 0 07/10/25 15:36 Thrive Assessment: Date of Thrive Assessment Date Thrive assessed 07/10/25 07/10/25 10:22 Currently or been in a relationship where the following occur: No concerns reported Const General: alert; No acute distress Eyes Conjunctivae: conjunctivae normal Resp Auscultation: clear to auscultation bilaterally Cardio Rate: regular rate Rhythm: regular rhythm GI Inspection: Yes normal to inspection Extrem General: Yes normal to inspection and No edema Coding Level of Care Code Est Pt Level 4 (55062) Complex EM visit Add On G2211 Diagnoses Vitamin B12 deficiency E53.8 Osteopenia M85.80 Benign paroxysmal positional vertigo H81.10 Renal calculus, bilateral N20.0 Generalized anxiety disorder with panic attacks F41.1; F41.0 S/P left rotator cuff repair Z98.890 Impaired glucose tolerance R73.02 Hypercholesterolemia E78.00 Personal history of nicotine dependence Z87.891 Asymmetrical hearing loss H91.8X3 Dermatitis of face L30.9 Assessment & Plan Assessment & Plan (1) Vitamin B12 deficiency: Code(s): E53.8 - Deficiency of other specified B group vitamins Category: Medical Plan: Continue with vitamin B12 1000 mcg once a day (2) Osteopenia: Comment: March 2023 Code(s): M85.80 - Other specified disorders of bone density and structure, unspecified site Category: Medical Plan: Reminded about bone density discussed about calcium and vitamin-D (3) Benign paroxysmal positional vertigo: Code(s): H81.10 - Benign paroxysmal vertigo, unspecified ear Category: Medical Plan: Keep well hydrated (4) Renal calculus, bilateral: Comment: May 2023 Left renal nonobstructing calculus. 2. Question of 0.3 cm nonobstructing calculus in the upper pole of the right kidney. Code(s): N20.0 - Calculus of kidney Category: Medical Plan: Keep well hydrated (5) Generalized anxiety disorder with panic attacks: Comment: decline counselling 05/2022 Code(s): F41.1 - Generalized anxiety disorder; F41.0 - Panic disorder [episodic paroxysmal anxiety] Category: Medical Plan: Continue with fluoxetine, lorazepam and trazodone (6) S/P left rotator cuff repair: Code(s): Z98.890 - Other specified postprocedural states Category: Surgical Plan: Patient continues to follow-up with orthopedics (7) Impaired glucose tolerance: Code(s): R73.02 - Impaired glucose tolerance (oral) Category: Medical Plan: Decrease the amount of carbohydrate intake, pasta, bread, rice and potatoes are all sugar and that is aside from all the sweet stuff, remember that fruits are good but they are Sweet also. (8) Hypercholesterolemia: Code(s): E78.00 - Pure hypercholesterolemia, unspecified Category: Medical Plan: Avoid fried foods, chicken skin, eggs, butter margarine, pastries and meat. Be it pork or beef they have a lot of cholesterol on rosuvastatin 10 mg once a day November 2024 last blood work (9) Personal history of nicotine dependence: Comment: (former smoker - onset 17yo, 1ppd x 33yrs, 30pyh - quit 2009) CT January 2025 Code(s): Z87.891 - Personal history of nicotine dependence Category: Medical (10) Asymmetrical hearing loss: Code(s): H91.8X3 - Other specified hearing loss, bilateral Category: Medical (11) Dermatitis of face: Code(s): L30.9 - Dermatitis, unspecified Category: Medical Plan History of Present Illness The patient is a 65-year-old female presenting for a follow-up visit. She has a history of osteopenia, with the last bone density test conducted in March 2023. She also has generalized anxiety disorder, impaired glucose tolerance, and hypercholesterolemia. The patient has a history of nephrolithiasis and a tear of the left rotator cuff, for which she underwent arthroscopic repair. The patient reports experiencing hearing problems and a sensation of pins and needles starting from the back of her neck and extending to her back. She has been evaluated by neurology and ENT, and an MRI of the brain has been ordered to investigate these symptoms further. She also reports a cyst that was previously ruptured and is awaiting further evaluation by dermatology. Preventative care measures discussed include a mammogram and bone density screening, which are due. Health Maintenance - Mammogram and bone density screening are due. - Continue with vitamin B12 supplementation. - Discussed calcium and vitamin D supplementation for bone health. Social History - History of smoking. Review of Systems - Neurological: Reports pins and needles sensation from neck to back. Denies headaches, dizziness, or balance issues. - Respiratory: Denies shortness of breath or cough. - Cardiovascular: Denies chest pain or heaviness. Physical Exam Results - Labs: Normal blood count, normal electrolytes, normal renal function, normal blood sugar, normal liver function. Triglycerides mildly elevated, low B12 levels. - Imaging: Last CAT scan in January 2025 showed benign appearance. Plan The patient will continue with vitamin supplementation to address the low levels noted in the recent blood work. An MRI of the brain has been ordered to further investigate the hearing problems and pins and needles sensation reported by the patient. She is advised to continue with fluoxetine, lorazepam, and trazodone for her generalized anxiety disorder. The patient is reminded to schedule her mammogram and bone density screening, which are due. A referral to dermatology has been made for evaluation of the cyst and skin tag. The patient is advised to maintain hydration and continue with calcium and vitamin D supplementation for bone health. Patient was informed and verbally consented to the use of an ambient scribe for clinic note documentation during this visit. Discussion Notes During the visit, I discussed with the patient the importance of continuing vitamin B12 supplementation to address her low levels. We also talked about the need for an MRI of the brain to investigate her hearing problems and pins and needles sensation. I advised her to continue her current medications for anxiety and reminded her to schedule her mammogram and bone density screening. A referral to dermatology was made for her cyst and skin tag. I emphasized the importance of maintaining hydration and continuing calcium and vitamin D supplementation for bone health. Patient Instructions - Continue taking vitamin B12 daily. - Schedule and attend MRI for hearing issues. - Keep taking fluoxetine, lorazepam, and trazodone as prescribed. - Schedule mammogram and bone density screening. - Follow up with dermatology for cyst and skin tag evaluation. - Stay hydrated and continue calcium and vitamin D supplements. Orders: Orders XR DEXA axial skeleton Today M81.0 - Age-related osteoporosis without current pathological fracture, M85.80 - Other specified disorders of bone density and structure, unspecified site MR head/brain wo/w con Today H91.8X3 - Other specified hearing loss, bilateral Blood Urea Nitrogen Today H91.8X3 - Other specified hearing loss, bilateral Creatinine Today H91.8X3 - Other specified hearing loss, bilateral Referrals Dermatology Referral L30.9 - Dermatitis, unspecified
[2025-07-10 10:42] VITALS: BP 110/66; PULSE 78; RESP 18; O2SAT 96; BMI 25.1
--- OUTSIDE RECORDS SUMMARY | 2025-07-10 11:22 | XMS_ITS | Continuity of Care Document ---
Author Name [facility] Organization [facility] Care Team Providers Care Reed Fixer Name Role Phone [facility] Unavailable Unavailable Social History Combined list of available smoking, tobacco, and other social history from Department of Defense and Veterans Affairs facilities. Social History Type Response Date Comment Sourc e This section is an empty social history section. [facility]
--- OUTSIDE RECORDS SUMMARY | 2025-07-10 11:23 | XMS_ITS | Clinical Summary ---
Author Organization [facility] Address [address] [place] [id number] Phone Care Team Providers Care Caustic Operator Name Role Phone Darron Daniel MD Primary Care Provider [phone] Allergies Active Allergy Reactions Criticality Noted Date Comments Bupropion 03/15/2017 Change in thoughts crazy thoughts Medications dicyclomine (BENTYL) 20 mg tablet 10/07/2022 Active LORazepam (ATIVAN) 0.5 MG tablet Take 0.5 mg by mouth daily as needed. 11/11/2022 Active rosuvastatin (CRESTOR) 10 MG tablet 09/14/2022 Active traZODone (DESYREL) 100 MG tablet 09/14/2022 Active celecoxib (CELEBREX) 200 MG capsule Take 1 capsule by mouth every morning. 09/15/2023 Active FLUoxetine (PROZAC) 40 MG capsule Take 1 capsule by mouth every morning. 07/16/2024 Active Active Problems No known active problems Immunizations No known immunizations Social History Tobacco Use Types Packs/Day Years Used Date Smoking Tobacco: Former Cigarettes Smokeless Tobacco: Never Tobacco Cessation:Counseling Given: Not Answered Education Answer Date Recorded Are you interested in more education? Not on gissell e 03/18/2023 Are you concerned about learning? Not on file 03/18/2023 No 03/18/2023 No 03/18/2023 Digital Access Answer Date Recorded No 04/18/2023 No 04/18/2023 Reliable internet access at home? Not on file 04/18/2023 Device with a working camera? Not on file Comments Unknown Sex and Gender Information Value Date Recorded Sex Assigned at Not on file Legal Sex Female 4:31 PM EST Gender Identity Not on file Sexual Orientation Not on file Last Filed Vital Signs Vital Sign Reading Time Taken Comments Blood Pressure 119/75 07/24/2024 1:05 PM EDT Pulse 91 07/24/2024 1:05 PM EDT Temperature 36.5 C (97.7 F) 07/24/2024 1:05 PM EDT Respiratory Rate 16 07/24/2024 1:05 PM EDT Oxygen Saturation 98% 07/24/2024 1:05 PM EDT Inhaled Oxygen Concentration - - Weight 70.3 kg (155 lb) 10/10/2023 4:18 PM EST Height 162.6 cm (5' 4 ) 10/10/2023 4:18 PM EST Body Mass Index 26.61 10/10/2023 4:18 PM EST Plan of Treatment Health Maintenance Due Date Last Done Comments Adult Td,Tdap Booster 1962 LIPID PANEL 1962 DEPRESSION SCREENING 1974 SMOKING Hx and SMOKELESS TOBACCO SCREENING 1975 HEPATITIS C SCREENING 1980 HIV ONE-TIME SCREENING (18-6 5 YEARS) 1980 PAP SMEAR 1983 SCREENING FOR DIABETES 1997 MAMMOGRAM 2002 COLOGUARD 2007 COLONOSCOPY 2007 COLORECTAL CANCER SCREENING 2007 FIT TEST 2007 FOBT 2007 SIGMOIDOSCOPY 2007 VIRTUAL COLONOSCOPY 2007 COVID-19 VACCINE (2 - 2023-2 5 season) 2024 02/25/2021 RSV VACCINE (1 - 1-dose 75+ series) 2037 PNEUMOCOCCAL VACCINES (50+ years) Completed 03/15/2023 ZOSTER VACCINES Completed 07/05/2023, 02/05/2023 HEPATITIS A VACCINES Aged Out No long er eligible based on patient's age to complete this topic HIB VACCINES Aged Out No longer eligi ble based on patient's age to complete this topic MENINGOCOCCAL VACCINES (ACWY) Aged Out No longer eligible based on patient's age to complete this topic MENINGOCOCCAL VACCINES (B) Aged Out N o longer eligible based on patient's age to complete this topic Medical Devices Not on file Insurance [facility] Care Teams Caustic Operator Relationship Specialty Start Date End Date Darron Daniel MD [address] [place] [phone] PCP - General Internal Medicine 11/22/22 Additional Source Comments The information contained in this document represents components of the legal health record. It is not the complete legal health record.[facility]
--- OUTSIDE RECORDS SUMMARY | 2025-07-10 11:23 | XMS_ITS | Clinical Summary ---
Author Organization [facility] Address [address] [place] [address] Care Team Providers Care Orchestra Conductor Name Role Phone César Boswell Primary Care Provider [phone] Allergies Active Allergy Reactions Criticality Noted Date [...] 84 03/15/2017 12:12 PM EDT Temperature 37.1 C (98.7 F) 03/15/2017 12:12 PM EDT Respiratory Rate 16 03/15/2017 12:12 PM EDT [...] - 2023-2 5 season) 2024 Influenza (#1) 2025 RSV (1 - 1-dose 75+ series) 2037 HPV Vaccine (No Doses Required) Completed Hep A Aged Out No longer eligi [...] topic Zoster (Zostavax) Discontinued Insurance * Guarantor: [id number] eFolder Account Type Relation to Patient Date of Phone Billing Address Worker[employer] Comp [address] [place] [address] [employer] Care Teams Orchestra Conductor Relationship Specialty Start Date End Date César Boswell [address] [place] [phone] PCP - General Family Medicine 03/15/17
== END 2025-07-10 11:16 | disposition home or self-care (01) ==
LOC: HO.HMCH 10:13
PROVIDERS: PCP Internal Medicine; Visit Provider Internal Medicine
DX: E53.8 Deficiency of other specified B group vitamins (principal); M85.80 Other specified disorders of bone density and structure, unspecified site; H81.10 Benign paroxysmal vertigo, unspecified ear; N20.0 Calculus of kidney; F41.1 Generalized anxiety disorder; F41.0 Panic disorder [episodic paroxysmal anxiety]; Z98.890 Other specified postprocedural states; R73.02 Impaired glucose tolerance (oral); E78.00 Pure hypercholesterolemia, unspecified; Z87.891 Personal history of nicotine dependence; H91.8X3 Other specified hearing loss, bilateral; L30.9 Dermatitis, unspecified

== ENCOUNTER → 2025-07-10 10:12 | Outpatient (BNVA) | payer OTHER, SELFPAY | PROVIDERS: PCP Internal Medicine; Visit Provider Internal Medicine | DX: N20.0 Calculus of kidney (principal); H81.10 Benign paroxysmal vertigo, unspecified ear; M85.80 Other specified disorders of bone density and structure, unspecified site; E53.8 Deficiency of other specified B group vitamins; F41.1 Generalized anxiety disorder; F41.0 Panic disorder [episodic paroxysmal anxiety]; R73.02 Impaired glucose tolerance (oral); E78.00 Pure hypercholesterolemia, unspecified; H91.8X3 Other specified hearing loss, bilateral; L30.9 Dermatitis, unspecified; Z87.891 Personal history of nicotine dependence; Z98.890 Other specified postprocedural states | CPT/HCPCS: 96127; 99212 ==